=== PATIENT | female | born 1985 | race Caucasian/White ===

== ENCOUNTER 2018-11-15 16:50 | Inpatient (IN) | payer OTHER ==
[2018-11-15] MEDS ORDERED: Lactated Ringers 1,000 ML IV SCH (18:15)
[2018-11-15] MEDS ORDERED: Ondansetron 4 MG/2 ML SDV IVPUSH PRN ×2 (18:15→21:57)
[2018-11-15] MEDS ORDERED: Sodium Chloride 0.9% 10 ML Syringe FLUSH PRN (18:15)
[2018-11-15] MEDS ORDERED: Lidocaine 1% 50 ML MDV INJECT ONE (18:15)
--- NOTE | 2018-11-15 19:30 | PCM.LDHP ---
L&D History of Present Illness - General Date of Service: 11/15/18 Admit Problem/Dx: Patient Status Order with Admit Dx/Problem 11/15/18 18:15 Patient Status [ADT] Routine Admission Diagnosis/Problem Admission Diagnosis/Problem Labor established - History of Present Illness Introduction:: 33 year old here at 39w0d with painful contractions and cervical change. Improves with: Reports: None Worsens with: Reports: None Associated Symptoms: Reports: N - Related Data Allergies/Adverse Reactions: Allergies Allergy/AdvReac Type Severity Reaction Status Date / Time nickel Allergy Rash Verified 11/15/18 17:50 Home Medications: Home Meds PNV95/Ferrous Fumarate/FA [ Tablet] 1 each PO 11/15/18 [History] Past Medical History - Past Health History Medical/Surgical History: Denies Medical/Surgical History Respiratory 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: Asthma - Past Surgical History HEENT Surgical 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: Oral Surgery, Tonsillectomy, Other (See Below) GI Surgical 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: Appendectomy Social & Family History - Family History Family Medical History: Noncontributory Respiratory: Reports: Asthma - Tobacco Use Smoking Status *Q: Never Smoker Second Hand Smoke Exposure: No - Caffeine Use Caffeine Use: Reports: None - Recreational Drug Use Recreational Drug Use: No - Living Situation & Occupation Living situation: Reports: , with Spouse Occupation: Employed ([employer]) H&P Review of Systems - Review of Systems: Review Of Systems: See Below General: Reports: No Symptoms HEENT: Reports: No Symptoms Pulmonary: Reports: No Symptoms Cardiovascular: Reports: No Symptoms Gastrointestinal: Reports: No Symptoms Genitourinary: Reports: No Symptoms Musculoskeletal: Reports: No Symptoms Skin: Reports: No Symptoms Psychiatric: Reports: No Symptoms Neurological: Reports: No Symptoms Hematologic/Lymphatic: Reports: No Symptoms Immunologic: Reports: No Symptoms L&D Exam - Exam Exam: See Below - Vital Signs Vital Signs: Last Vital Signs Temp 37.2 C 11/15/18 17:27 Pulse 81 11/15/18 17:27 Resp 18 11/15/18 17:27 BP 138/80 11/15/18 17:27 Pulse Ox 97 11/15/18 17:27 Weight: 86.409 kg - OB Specific Contraction Intensity: Mild to Moderate Movement: Active Heart Tones: Present Heart Rate (FHR) Variability: Moderate (6-25 bmp) Presentation: Vertex - Fitch Score Fitch Score Cervix Position: Midposition Fitch Score Consistency: Soft Fitch Score Effacement: >80% Fitch Score Dilation: 3-4 cm Fitch Score 's Station: -2 Fitch Score Total: 9 - Exam General: Alert, Oriented HEENT: PERRLA, Conjunctiva Clear, EACs Clear, EOMI, Hearing Intact, Mucosa Moist & [place], Nares Patent, Normal Nasal Septum, Posterior Pharynx Clear, TMs Clear Neck: Supple, Trachea Midline Lungs: Clear to Auscultation, Normal Respiratory Effort Cardiovascular: Regular Rate, Regular Rhythm GI/Abdominal Exam: Normal Bowel Sounds, Soft, Non-Tender, No Organomegaly, No Distention, No Abnormal Bruit, No Mass, Pelvis Stable Genitourinary: Normal external exam, Normal bimanual exam Back Exam: Normal Inspection Extremities: Normal Inspection, Normal Range of Motion, Non-Tender, No Pedal Edema, Normal Capillary Refill Skin: Warm, Dry, Intact Neurological: Cranial Nerves Intact, Reflexes Equal Bilateral Psychiatric: Alert, Normal Affect, Normal Mood Problem List Initiated/Reviewed/Updated: Yes Orders Last 24hrs: Active Orders 24 hr Category Date Time Status Patient Status [ADT] Routine ADT 11/15/18 18:15 Active Activity as Tolerated [RC] PFP Care 11/15/18 18:15 Active Communication Order [RC] ASDIRECTED Care 11/15/18 18:15 Active Heart Tones [RC] ASDIRECTED Care 11/15/18 18:16 Active Non Stress Test [RC] PER UNIT ROUTINE Care 11/15/18 18:15 Active Notify Provider [RC] PFP Care 11/15/18 18:15 Active Notify Provider [RC] PRN Care 11/15/18 18:15 Active Peripheral IV Care [RC] . DIRECTED Care 11/15/18 18:16 Active Vital Signs [RC] PER UNIT ROUTINE Care 11/15/18 18:15 Active Regular Diet [DIET] Diet 11/15/18 Dinner Active RAPID PLASMA REAGIN,RPR [CHEM] Routine Lab 11/15/18 18:40 Received Lactated Ringers [Ringers, Lactated] 1,000 ml Med 11/15/18 18:15 Active IV ASDIRECTED Nalbuphine [Nubain] Med 11/15/18 18:15 Active 10 mg IVPUSH Q2H PRN Ondansetron [Zofran] Med 11/15/18 18:15 Active 4 mg IVPUSH Q4H PRN Sodium Chloride 0.9% [Saline Flush] Med 11/15/18 18:15 Active 10 ml FLUSH ASDIRECTED PRN Electronic Heart Tones Ext w TOCO [WOMSER] Oth 11/15/18 18:15 Ordered Routine Electronic Heart Tones Internal [WOMSER] Per Unit Oth 11/15/18 18:15 Ordered Routine Peripheral IV Insertion Adult [OM.PC] Routine Oth 11/15/18 18:15 Ordered Resuscitation Status Routine Resus Stat 11/15/18 18:15 Ordered Medication Orders Lactated Ringer's (Ringers, Lactated) 1,000 mls @ 100 mls/hr IV ASDIRECTED TALITA Nalbuphine HCl (Nubain) 10 mg IVPUSH Q2H PRN PRN Reason: Pain Ondansetron HCl (Zofran) 4 mg IVPUSH Q4H PRN PRN Reason: Nausea/Vomiting Sodium Chloride (Saline Flush) 10 ml FLUSH ASDIRECTED PRN PRN Reason: Keep Vein Open Assessment/Plan Comment:: Term labor. Doing well. Anticipate unless otherwise indicated.
[2018-11-15] MEDS ORDERED: fentaNYL/Bupivacaine in NS PF 2 MCG-0.125% 250 ML Premix EPIDUR PRN (21:57)
[2018-11-15] MEDS ORDERED: ePHEDrine 50 MG/ML SDV IVPUSH PRN (21:57)
[2018-11-15] MEDS ORDERED: fentaNYL 100 MCG/2 ML SDV EPIDUR PRN (21:57)
--- NOTE | 2018-11-15 21:59 | PCM.PREANE ---
Preanesthetic Assessment - Anesthesia/Transfusion/Family Hx Anesthesia History: Prior Anesthesia Without Reaction Family History of Anesthesia Reaction: No Transfusion History: No Prior Transfusion(s) Intubation History: Unknown - Review of Systems Pulmonary: No Symptoms (History of asthma) - Physical Assessment NPO Status Date: 11/15/18 Vital Signs: Last Vital Signs Temp 37.2 C 11/15/18 17:27 Pulse 81 11/15/18 17:27 Resp 18 11/15/18 17:27 BP 138/80 11/15/18 17:27 Pulse Ox 97 11/15/18 17:27 Height: 1.68 m Weight: 86.409 kg ASA Class: 2 Mental Status: Alert & Oriented x3 - Allergies Allergies/Adverse Reactions: Allergies Allergy/AdvReac Type Severity Reaction Status Date / Time nickel Allergy Rash Verified 11/15/18 17:50 - Anesthesia Plan Pre-Op Medication Ordered: None - Acknowledgements Anesthesia Type Planned: Epidural Pt an Appropriate Candidate for the Planned Anesthesia: Yes Alternatives and Risks of Anesthesia Discussed w Pt/Guardian: Yes Pt/Guardian Understands and Agrees with Anesthesia Plan: Yes PreAnesthesia Questionnaire - Past Health History Medical/Surgical History: Denies Medical/Surgical History Respiratory 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: Asthma - Past Surgical History HEENT Surgical 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: Oral Surgery, Tonsillectomy, Other (See Below) GI Surgical 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: Appendectomy - SUBSTANCE USE Smoking Status *Q: Never Smoker Second Hand Smoke Exposure: No Recreational Drug Use History: No - HOME MEDS Home Medications: Home Meds PNV95/Ferrous Fumarate/FA [ Tablet] 1 each PO 11/15/18 [History] - CURRENT (IN HOUSE) MEDS Current Meds: Current Medications Lactated Ringer's (Ringers, Lactated) 1,000 mls @ 100 mls/hr IV ASDIRECTED TALITA Nalbuphine HCl (Nubain) 10 mg IVPUSH Q2H PRN PRN Reason: Pain Ondansetron HCl (Zofran) 4 mg IVPUSH Q4H PRN PRN Reason: Nausea/Vomiting Sodium Chloride (Saline Flush) 10 ml FLUSH ASDIRECTED PRN PRN Reason: Keep Vein Open Discontinued Medications Lidocaine HCl (Xylocaine 1%) 50 ml INJECT ONETIME ONE Stop: 11/15/18 18:16
[2018-11-15] MEDS ORDERED: Oxytocin/Lactated Ringers 10 UNIT/1,000 ML BAG IV SCH (23:15)
[2018-11-15] MEDS: Nalbuphine 10 MG/1 ML Vial IVPUSH PRN (23:17)
[2018-11-16] MEDS ORDERED: Oxytocin/Lactated Ringers 10 UNIT/1,000 ML BAG IV SCH (01:30)
[2018-11-16] MEDS: Nalbuphine 10 MG/1 ML Vial IVPUSH PRN (01:31)
[2018-11-16] MEDS ORDERED: Oxytocin/Lactated Ringers 10 UNIT/1,000 ML BAG IV ONE (03:10)
[2018-11-16] MEDS ORDERED: Lidocaine 1% 50 ML MDV ONE (03:13)
--- NOTE | 2018-11-16 03:44 | PCM.SN ---
- Free Text/Narrative Note: Stage I - Patient presented in active labor. Progressed to complete with one dose of nubain. Stage II - of viable male, weight 3400, 7/9 APGARS at 0309. Head delivered in controlled manner over intact perineum. Body and shoulders atraumatically. Positive cry. Cord clamped and cut. Baby on maternal abdomen. Stage III - of intact placenta. 3vc. Small 1st degree laceration repaired with 3-0 vicryl.
[2018-11-16] MEDS ORDERED: Ibuprofen 600 MG Tab PO PRN (04:05)
[2018-11-16] MEDS ORDERED: Benzocaine/Menthol 20%-0.5% Spray 56 GM Canister TOP PRN (04:05)
[2018-11-16] MEDS ORDERED: Witch Hazel Medicated Pads 40/Jar TOP PRN (04:05)
--- NOTE | 2018-11-18 07:18 | PCM.DCSUM1 ---
Discharge Summary - Hospital Course Free Text/Narrative:: Racheal is a 33-year-old female admitted for active labor on 11/15/2018. Labor progressed as follows: Stage I - Patient presented in active labor. Progressed to complete with one dose of nubain. Stage II - of viable male, weight 3400, 7/9 APGARS at 0309. Head delivered in controlled manner over intact perineum. Body and shoulders atraumatically. Positive cry. Cord clamped and cut. Baby on maternal abdomen. Stage III - of intact placenta. 3vc. Small 1st degree laceration repaired with 3-0 vicryl. patient is done well. She's been afebrile. Vital signs stable. She is desiring discharge home. Diagnosis: Stroke: No - Discharge Data Discharge Date: 11/18/18 Discharge Disposition: Home, Self-Care 01 Condition: Good - Referral to Home Health Primary Care Physician: Isabel Baker MD - Patient Instructions Diet: Regular Diet as Tolerated Activity: As Tolerated (Carver or tampons until bleeding resolves) Driving: May Drive Today Showering/Bathing: May Shower (May take a bath) Notify Provider of: Fever, Increased Pain, Swelling and Redness, Nausea and/or Vomiting - Discharge Plan Home Medications: Home Meds Albuterol Sulfate [Albuterol Sulfate Hfa] 1 puff INH Q4HR PRN 11/15/18 [History] Albuterol [Proventil Neb Soln] 1 ampule INH QID PRN 11/15/18 [History] Calcium Carb/D3/Magnesium/Zinc [Miguel Mag Zinc + D Tablet] 2 tab PO DAILY [History] PNV95/Ferrous Fumarate/FA [ Tablet] 1 each PO 11/15/18 [History] Referrals: Isabel Baker MD [Primary Care Provider] - (Return to clinic4 weeks 'Dr. Marcos) - Discharge Summary/Plan Comment DC Time >30 min.: No Discharge Summary/Plan Comment: Discharge instructions: 1. Discharge home 2. Diet, activity and follow-up discussed with patient. Recommend nursing diet with increased calories and calcium. 3. Precautions given concern increased pain, bleeding, temperature, signs/ symptoms of DVT/PE. 4. Medications per home medication was printed, discussed with and given to the patient. 5. Return to clinic-Dr. Marcos at [facility] in 6 weeks. Diagnosis: Term -delivered Condition: Good - Patient Data Vitals - Most Recent: Last Vital Signs Temp 36.7 C 11/18/18 03:00 Pulse 92 11/18/18 03:00 Resp 16 11/18/18 03:00 BP 108/55 L 11/18/18 03:00 Pulse Ox 99 11/18/18 02:09 Weight - Most Recent: 86.409 kg I&O - Last 24 hours: Intake & Output 11/17/18 11/18/18 11/18/18 22:59 06:59 14:59 Intake Total 180 Balance 180 Med Orders - Current: Current Medications Benzocaine/Menthol (Dermoplast Pain Relief [place]) 0 gm TOP ASDIRECTED PRN PRN Reason: Perineal Comfort Measure Last Admin: 11/16/18 04:09 Dose: 1 canister Ibuprofen (Motrin) 600 mg PO Q6H PRN PRN Reason: Mild pain or fever Last Admin: 11/16/18 04:09 Dose: 600 mg Witch Rocio (Tucks) 1 pad TOP ASDIRECTED PRN PRN Reason: Pain Last Admin: 11/16/18 04:08 Dose: 1 tub Discontinued Medications Ephedrine Sulfate (Ephedrine Sulfate) 5 mg IVPUSH ASDIRECTED PRN PRN Reason: Hypotension Fentanyl (Sublimaze) 100 mcg EPIDUR Q3H PRN PRN Reason: Pain Fentanyl/Bupivacaine HCl (Fentanyl/Bupivacaine/Ns 2 Mcg-0.125% 250 Ml) 2 mcg EPIDUR CONTINUOUS PRN PRN Reason: Pain Lactated Ringer's (Ringers, Lactated) 1,000 mls @ 100 mls/hr IV ASDIRECTED TALITA Oxytocin/Lactated Ringer's (Pitocin In Lr 10 Units/1,000 Ml) 10 unit in 1,000 mls @ 500 mls/hr IV TITRATE TALITA; Protocol Oxytocin/Lactated Ringer's (Pitocin In Lr 10 Units/1,000 Ml) 10 unit in 1,000 mls @ 500 mls/hr IV ONETIME ONE; Protocol Stop: 11/16/18 05:09 Last Admin: 11/16/18 03:15 Dose: 500 mls/hr Lidocaine HCl (Xylocaine 1%) 50 ml INJECT ONETIME ONE Stop: 11/15/18 18:16 Last Admin: 11/16/18 04:06 Dose: 50 ml Lidocaine HCl (Xylocaine 1%) Confirm Administered Dose 50 ml .ROUTE .STK-MED ONE Stop: 11/16/18 03:14 Last Admin: 11/16/18 07:36 Dose: Not Given Nalbuphine HCl (Nubain) 10 mg IVPUSH Q2H PRN PRN Reason: Pain Last Admin: 11/16/18 01:31 Dose: 10 mg Ondansetron HCl (Zofran) 4 mg IVPUSH Q4H PRN PRN Reason: Nausea/Vomiting Ondansetron HCl (Zofran) 4 mg IVPUSH ONETIME PRN PRN Reason: Nausea/Vomiting Sodium Chloride (Saline Flush) 10 ml FLUSH ASDIRECTED PRN PRN Reason: Keep Vein Open
== END 2018-11-18 10:45 | disposition home or self-care (01) | DRG 807 ==
LOC: JD.OBCHECK 16:50 → JD.OB 16:53 → JD.OBCHECK 22:54 → OBSVTOIN 11-16 03:09 → JD.OB 11-16 03:10
PROVIDERS: ADMIT Obstetrics & Gynecology; ATTEND Obstetrics & Gynecology
PROC: 0HQ9XZZ Repair Perineum Skin, External Approach (ICD-10-PCS; principal; 2018-11-16)
PROC: 10E0XZZ Delivery of Products of Conception, External Approach (ICD-10-PCS; 2018-11-16)
DX: O70.0 First degree perineal laceration during delivery (principal); Z37.0 Single live birth; Z3A.39 39 weeks gestation of pregnancy
CPT/HCPCS: 36415; 59025; 59409; 85025; 86592; A9270-GY; J2001; J2300; J2590

== ENCOUNTER 2018-12-10 18:46 | Emergency (ER) | payer OTHER ==
--- NOTE | 2018-12-10 19:48 | EDM.PDOC ---
ED HPI GENERAL MEDICAL PROBLEM - General Chief Complaint: General Stated Complaint: LUMP ON RIGHT BREAST CHILLS AND LOW FEVER Time Seen by Provider: 12/10/18 19:23 Source of Information: Reports: Patient, Family () History Limitations: Reports: No Limitations - History of Present Illness INITIAL COMMENTS - FREE TEXT/NARRATIVE: Mrs. Bermudez is a very pleasant 33-year-old woman who underwent vaginal deliver on 11/16/2018. She is breast-feeding. She states that she developed a painful and tender right breast lump this past 12/08/2018. She continued to nurse and pump, took hot showers, and alternated heat and ice. Today she noticed a "blood blister" on the breast, which she popped around 11 AM. She states that purulent fluid emanated. It initially gave her relief, however, this evening she had considerably increased pain to the right breast. No recent fever. 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 She also visits her grandmother in the [facility] about once a week. The patient does not have a PCP. Her FOOD SERVICE HELPER is Dr. Isabel Baker. Treatments R&D ENGINEER: Reports: NSAIDS Right Breast Pain Score (Numeric/FACES): 6 - Related Data Allergies Allergy/AdvReac Type Severity Reaction Status Date / Time nickel Allergy Rash Verified 12/10/18 19:21 Home Meds: Home Meds Albuterol Sulfate [Albuterol Sulfate Hfa] 1 puff INH Q4HR PRN 11/15/18 [History] Albuterol [Proventil Neb Soln] 1 ampule INH QID PRN 11/15/18 [History] Calcium Carb/D3/Magnesium/Zinc [Miguel Mag Zinc + D Tablet] 2 tab PO DAILY [History] PNV95/Ferrous Fumarate/FA [ Tablet] 1 each PO 11/15/18 [History] Cephalexin [Keflex] 1 tab PO Q6H #28 capsule 12/10/18 [Rx] Past Medical History Respiratory 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: Asthma (suspected, not tested) - Past Surgical History HEENT Surgical 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: Naso-Sinus Surgery (nasolacrimal duct surgery as an ), Oral Surgery (wisdom teeth extractions), Tonsillectomy GI Surgical 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: Appendectomy Social & Family History - Family History Family Medical History: Noncontributory Respiratory: Reports: Asthma - Tobacco Use Smoking Status *Q: Never Smoker - Caffeine Use Caffeine Use: Reports: None - Alcohol Use Alcohol Use History: Yes Alcohol Use Frequency: Socially - Recreational Drug Use Recreational Drug Use: No - Living Situation & Occupation Living situation: Reports: , with Spouse, with Family (1 child) Occupation: Employed ([employer]) ED ROS GENERAL - Review of Systems Review Of Systems: ROS reveals no pertinent complaints other than HPI. ED EXAM, GENERAL - Physical Exam Exam: See Below Exam Limited By: No Limitations General Appearance: Alert, WD/WN, No Apparent Distress Respiratory/Chest: Other (Erythema involves nearly the entire upper half of the right breast, and some of the lower half. Most of this erythema is indurated, consistent with cellulitis. There is a nonfluctuant area in the center that the patient indicates where the pustule was that she popped, that appears to be ecchymotic.) Course - Vital Signs Last Recorded V/S: Last Vital Signs Temp 37.5 C 12/10/18 19:17 Pulse 107 H 12/10/18 19:17 Resp 16 12/10/18 19:17 BP 121/93 H 12/10/18 19:17 Pulse Ox 99 12/10/18 19:17 - Orders/Labs/Meds Orders: Active Orders 24 hr Category Date Time Status CULTURE BODY FLUID + SMEAR [RM] Stat Lab 12/10/18 22:05 Received Labs: Laboratory Tests 12/10/18 Range/Units 20:11 MRSA (PCR) Negative Meds: Medications Discontinued Medications Generic Name Dose Route Start Last Admin Trade Name Buffy PRN Reason Stop Dose Admin Cephalexin 500 mg 12/10/18 21:38 12/10/18 22:25 Keflex PO 12/10/18 21:39 500 mg ONETIME STA Administration Vancomycin HCl 1 gm/ Sodium 250 mls @ 250 mls/hr 12/10/18 21:08 12/10/18 21: 20 Chloride IV 12/10/18 22:07 250 mls/hr ONETIME STA Administration - Re-Assessments/Exams Free Text/Narrative Re-Assessment/Exam: 12/10/18 19:45 By examination, the patient is not suffering from simple mastitis caused by a clogged milk duct; she has significant cellulitis that involves most of the right breast. In the center, where the patient reports a "blood blister" that she popped, this may represent a pustule. The patient's breast is indurated, but I do not feel the fluctuance of a fluid pocket. The presence of a pustule increases the likelihood that the patient's cellulitis is due to MRSA, and, indeed, the patient tells me that she uses antibacterial soap at home and visits her grandmother in the [facility] about once a week, both of which increase her risk for MRSA colonization. I have therefore ordered an MRSA screen by PCR, and will direct antibiotic treatment based on those results. 12/10/18 21:09 Notified by Meka FERREIRA that the patient is feeling some shivers. The MRSA screen by PCR is not yet back, but I think it would be reasonable to give the patient a dose of IV vancomycin, then base her oral antibiotics on the MRSA screen results. 12/10/18 21:40 The MRSA screen has returned negative. Current guidelines recommend collection of a sterile sample of breast milk; if an organism grows in the breast milk, that is almost certainly the causative agent. The patient believes that she can provide of breastmilk sample. I have ordered 500 mg of oral Keflex, and will discharge the patient home with a 7-day prescription for the same. I would like her to follow-up with her OB/ LEGAL TRANSCRIBER this week. Departure - Departure Time of Disposition: 21:52 Disposition: Home, Self-Care 01 Condition: Good Clinical Impression: Infective mastitis - Discharge Information *PRESCRIPTION DRUG MONITORING PROGRAM REVIEWED*: Not Applicable *COPY OF PRESCRIPTION DRUG MONITORING REPORT IN PATIENT YANE: Not Applicable Prescriptions: Cephalexin [Keflex] 1 tab PO Q6H #28 capsule Instructions: Mastitis, Qrda-to-Oxiw Referrals: Isabel Baker MD [Primary Care Provider] - Forms: ED Department Discharge Additional Instructions: You were seen in the emergency room for a painful, swollen, and red right breast. Workup in the ER included an MRSA screen by PCR, which returned negative. Based on your history and physical examination, you are most likely suffering from infective mastitis. You have been started on the antibiotic Keflex. A prescription for Keflex has been sent to the [facility], located on [address]. Take one tablet of Keflex every 6 hours for 7 days, as prescribed. Finish the entire prescription unless told otherwise by Dr. Baker. You may take clil-snn-npxahhw ibuprofen, 2-3 tablets (400-600 mg) every 8 hours , with food, as needed for discomfort. Apply cool compresses to the right breast as needed for discomfort. Follow-up with your FOOD SERVICE HELPER, Dr. Isabel Baker, within the next few days. If any other problems, please do not hesitate to return to the ER. - My Orders Last 24 Hours: My Active Orders 12/10/18 22:05 CULTURE BODY FLUID + SMEAR [RM] Stat - Assessment/Plan Last 24 Hours: My Active Orders 12/10/18 22:05 CULTURE BODY FLUID + SMEAR [RM] Stat
[2018-12-10] MEDS ORDERED: Cephalexin 500 MG Cap PO STA (21:38)
== END 2018-12-10 22:32 | disposition home or self-care (01) ==
LOC: JD.ED 18:46
DX: O91.22 Nonpurulent mastitis associated with the puerperium (principal); Z91.09 Other allergy status, other than to drugs and biological substances
CPT/HCPCS: 87070; 87641; 96365; 99283; A9270; J3370; J7050; 87205

== ENCOUNTER 2018-12-13 09:59 | Inpatient (IN) | payer OTHER ==
[2018-12-13] MEDS ORDERED: Sodium Chloride 0.9% 10 ML Syringe FLUSH PRN (10:28)
[2018-12-13] MEDS ORDERED: FLU Vacc QS2019-20(6MOS+)/PF 60 MCG/0.5 ML SYRINGE IM ONE (11:45)
[2018-12-13] MEDS: Ibuprofen 400 MG Tab PO SCH ×3 (12:07→22:35)
[2018-12-13] MEDS: Acetaminophen/oxyCODONE 325-5 MG Tab PO PRN ×2 (12:10→16:25)
[2018-12-13] MEDS: Vancomycin 1.5 GM in Sodium Chloride 0.9% 500 ML IV SCH ×2 (12:11→22:38)
--- NOTE | 2018-12-13 12:42 | PCM.HP.2 ---
<Harpal Foss - Last Filed: 12/13/18 13:20> H&P History of Present Illness - General Date of Service: 12/13/18 Admit Problem/Dx: Admission Diagnosis/Problem Admission Diagnosis/Problem Breast infection Source of Information: Patient History Limitations: Reports: No Limitations - History of Present Illness Initial Comments - Free Text/Narative: Patient is a 33 year old female who is approximately 1 month post from [facility] on 11/16/18 and currently . She is a patient of Dr. Baker. On Tuesday12/08/18 the patient initially noticed what she thought may have been a clogged duct while . She noted a painful and tender right breast lump. She attempted massage, hot and cold compresses and continued breast feeding for management. On Tuesday, she noticed that there was a "white head like a pimple," on her breast. She then used her fingers to "squeeze" the lesion, causing release of approximately 2 paper-towel's worth of fluid around 11 am. She initially felt relief and took a nap, however following her nap she awoke in excruciating pain. She then presented to the ER, where she underwent MRSA screening as well as culturing of her breast milk. While in the ER, the patient developed some chills and was given an single dose of IV vancomycin while awaiting the MRSA screen. The MRSA screen then returned negative, and the patient was discharged home with a 7 day prescription of 500 mg oral Cephalexin and instructed to follow up with OB the following week. On 12/12/18, the patient presented to the walk in clinic for further evaluation of the breast. In the walk in clinic, the patient underwent I&D of the lesion, with drainage of copious amount of fluid and packing of the wound. A wound culture was obtained, and the patient instructed to follow up with OB provider the following day and seek immediate medical care if symptoms worsen. The patient was also prescribed sulfamethoxazole-trimethoprim double strength 800-160 mg BID for coverage of MRSA. The patient presented today in clinic for further evaluation of her breast lesion. She reports that she has taken her antibiotics as prescribed and continues to breast feed her son despite pain. She reports that her symptoms are relatively the same as before, including pain and redness, and denies worsening of symptoms. She reports that she is tolerating her antibiotics well, although she does note her son has had some abdominal discomfort, which she has discussed with his mold carrier. On exam the patient had significant erythema of the right breast and a small, pinpoint lesion that expressed copious amount of drainage when manipulated following removal of the packing. Culture report from the hospital was reviewed and the breast milk culture demonstrated MRSA with resistance to Amoxicillin/Clavulanate, Ampicillin, Ampicillin/Sulbactam, Ceftriaxone, Oxacillin, Levofloxacin and erythromycin.. Culture demonstrated susceptibility to Trimethoprim/sulfamethoxazole and vancomycin, among others. Wound culture reports from the walk in clinic were not yet available. The patient's abscess was repacked with 1/4 inch iodoform gauze and the patient was directly admitted to the hospital for IV antibiotics, blood cultures, pain management and further monitoring. Onset of Symptoms: Reports: Sudden Symptom Onset Date: 12/08/18 Duration of Symptoms: Reports: Day(s): Location: Reports: Other (breast) Right Breast Pain Score (Numeric/FACES): 2 - Related Data Allergies/Adverse Reactions: Allergies Allergy/AdvReac Type Severity Reaction Status Date / Time nickel Allergy Rash Verified 12/13/18 11:38 Home Medications: Home Meds Albuterol Sulfate [Albuterol Sulfate Hfa] 2 puff INH Q4HR PRN 11/15/18 [History] Calcium Carb/D3/Magnesium/Zinc [Miguel Mag Zinc + D Tablet] 2 tab PO BEDTIME [History] PNV95/Ferrous Fumarate/FA [ Tablet] 1 each PO BEDTIME 11/15/18 [History] RX: Albuterol [Proventil Neb Soln] 1 ampule INH QID PRN 11/15/18 [History] Cephalexin [Keflex] 1 tab PO Q6H #28 capsule 12/10/18 [Rx] RX: Ibuprofen 400 mg PO Q8H PRN 12/13/18 [History] Sulfamethoxazole/Trimethoprim [Bactrim Ds Tablet] 1 each PO BID 12/13/18 [ History] Past Medical History - Past Health History Medical/Surgical History: Denies Medical/Surgical History Respiratory 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: Asthma - Past Surgical History HEENT Surgical 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: Naso-Sinus Surgery, Oral Surgery, Tonsillectomy GI Surgical 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: Appendectomy Social & Family History - Family History Family Medical History: Noncontributory Respiratory: Reports: Asthma - Tobacco Use Smoking Status *Q: Never Smoker - Tobacco Core Measures Tobacco Use/Smoking Within Last 30 Days: No - Caffeine Use Caffeine Use: Reports: Coffee, Tea - Recreational Drug Use Recreational Drug Use: No - Living Situation & Occupation Living situation: Reports: , with Spouse, with Family (1 child) Occupation: Employed ([employer]) H&P Review of Systems - Review of Systems: Review Of Systems: See Below General: Reports: Chills HEENT: Reports: No Symptoms Pulmonary: Reports: No Symptoms Cardiovascular: Reports: No Symptoms Gastrointestinal: Reports: No Symptoms Genitourinary: Reports: No Symptoms Musculoskeletal: Reports: No Symptoms Skin: Reports: Change in Color, Lesions, Other (Increased pain) Psychiatric: Reports: No Symptoms Neurological: Reports: No Symptoms Hematologic/Lymphatic: Reports: No Symptoms Exam - Exam Exam: See Below - Vital Signs Vital Signs: Last Vital Signs Temp 98.1 F 12/13/18 10:13 Pulse 73 12/13/18 10:13 Resp 16 12/13/18 10:13 BP 116/75 12/13/18 10:13 Pulse Ox 98 12/13/18 10:13 Weight: 75.614 kg - Exam General: Alert, Oriented HEENT: Conjunctiva Clear, EACs Clear, EOMI, Hearing Intact, Mucosa Moist & [place] , Nares Patent, Pupils Equal Neck: Supple, Trachea Midline Lungs: Clear to Auscultation, Normal Respiratory Effort Cardiovascular: Regular Rate, Regular Rhythm GI/Abdominal Exam: Normal Bowel Sounds, Soft, Non-Tender Back Exam: Normal Inspection Extremities: Normal Inspection, Non-Tender, No Pedal Edema Peripheral Pulses: 1+: Posterior Tibial (L), Posterior Tibial (R), Dorsalis Pedis (L), Dorsalis Pedis (R), 2+: Radial (L), Radial (R) Skin: Other (Erythemaous, fluctuant lesion of the right breast, superior to the right areola. Associated surrounding erythema and warmth with tenderess. Left breast appears normal. ) Neurological: Cranial Nerves Intact Neuro Extensive - Mental Status: Alert, Oriented x3, Normal Mood/Affect, Normal Cognition Neuro Extensive - Motor, Sensory, Reflexes: CN II-XII Intact Psychiatric: Alert, Normal Affect, Normal Mood - Patient Data Lab Results Last 24 hrs: Laboratory Results - last 24 hr 12/13/18 12/13/18 Range/Units 11:15 11:18 WBC 8.62 (3.98-10.04) K/mm3 RBC 4.00 (3.98-5.22) M/mm3 Hgb 11.5 (11.2-15.7) gm/dl Hct 35.3 (34.1-44.9) % MCV 88.3 (79.4-94.8) fl MCH 28.8 (25.6-32.2) pg MCHC 32.6 (32.2-35.5) g/dl RDW Std Deviation 47.9 H (36.4-46.3) fL Plt Count 328 D (182-369) K/mm3 MPV 11.1 (9.4-12.3) fl Neut % (Auto) 74.3 H (34.0-71.1) % Lymph % (Auto) 17.4 L (19.3-51.7) % [place] % (Auto) 6.3 (4.7-12.5) % Eos % (Auto) 1.4 (0.7-5.8) Baso % (Auto) 0.3 (0.1-1.2) % Neut # (Auto) 6.40 H (1.56-6.13) K/mm3 Lymph # (Auto) 1.50 (1.18-3.74) K/mm3 [place] # (Auto) 0.54 H (0.24-0.36) K/mm3 Eos # (Auto) 0.12 (0.04-0.36) K/mm3 Baso # (Auto) 0.03 (0.01-0.08) K/mm3 Manual Slide Review Normal smear Sodium 142 (136-145) mEq/L Potassium 3.9 (3.5-5.1) mEq/L Chloride 107 (98-107) mEq/L Carbon Dioxide 25 (21-32) mEq/L Anion Gap 13.9 (5-15) BUN 14 (7-18) mg/dL Creatinine 0.9 (0.55-1.02) mg/dL Est Cr Clr Drug Dosing 84.79 mL/min Estimated GFR (MDRD) > 60 (>60) mL/min BUN/Creatinine Ratio 15.6 (14-18) Glucose 98 (74-106) mg/dL Calcium 9.4 (8.5-10.1) mg/dL Total Bilirubin 0.1 L (0.2-1.0) mg/dL AST 25 (15-37) U/L ALT 37 (14-59) U/L Alkaline Phosphatase 98 (46-116) U/L Total Protein 7.2 (6.4-8.2) g/dl Albumin 2.9 L (3.4-5.0) g/dl Globulin 4.3 gm/dL Albumin/Globulin Ratio 0.7 L (1-2) Result Diagrams: 12/13/18 11:18 12/13/18 11:15 Problem List Initiated/Reviewed/Updated: Yes Orders Last 24hrs: Active Orders 24 hr Category Date Time Status Patient Status [ADT] Routine ADT 12/13/18 10:29 Active Influenza Vaccine Charge [RC] .DISCHARGE Care 12/13/18 11:26 Active Notify Provider Vital Signs [RC] ASDIRECTED Care 12/13/18 10:29 Active Up ad Ninoska [RC] PER UNIT ROUTINE Care 12/13/18 10:29 Active Vital Signs [RC] 03,09,15,21 Care 12/13/18 10:29 Active Wound Care [RC] Q12H Care 12/13/18 10:35 Active Regular Diet [DIET] Diet 12/13/18 Lunch Active Acetaminophen/oxyCODONE [Percocet 325-5 MG] Med 12/13/18 10:28 Active 2 tab PO Q4H PRN Docusate Sodium [Colace] Med 12/13/18 10:28 Active 100 mg PO BID PRN Ibuprofen [Motrin] Med 12/13/18 10:30 Active 600 mg PO Q6H Ondansetron [Zofran] Med 12/13/18 10:28 Active 4 mg IVPUSH Q4H PRN Sodium Chloride 0.9% [Saline Flush] Med 12/13/18 10:28 Active 10 ml FLUSH ASDIRECTED PRN Vancomycin 1.5 gm Med 12/13/18 10:30 Active Sodium Chloride 0.9% [Normal Saline] 500 ml IV Q12H Peripheral IV Insertion Adult [OM.PC] Routine Oth 12/13/18 10:28 Ordered Resuscitation Status Routine Resus Stat 12/13/18 10:28 Ordered Medication Orders Docusate Sodium (Colace) 100 mg PO BID PRN PRN Reason: Constipation Vancomycin HCl 1.5 gm/ Sodium (Chloride) 500 mls @ 250 mls/hr IV Q12H TALITA Last Admin: 12/13/18 12:11 Dose: 250 mls/hr Ibuprofen (Motrin) 600 mg PO Q6H TALITA Last Admin: 12/13/18 12:07 Dose: 600 mg Ondansetron HCl (Zofran) 4 mg IVPUSH Q4H PRN PRN Reason: Nausea/Vomiting Oxycodone/Acetaminophen (Percocet 325-5 Mg) 2 tab PO Q4H PRN PRN Reason: Pain (moderate 4-6) Last Admin: 12/13/18 12:10 Dose: 2 tab Sodium Chloride (Saline Flush) 10 ml FLUSH ASDIRECTED PRN PRN Reason: Keep Vein Open Assessment/Plan Comment:: Assessment: * Breast Abscess: right breast, superior to areola. * Extent of erythema demarcated with pen for monitoring * Obtain blood cultures to rule out bacteremia * IV Vancomycin - pharmacy to dose * Ocycodone/acetaminophen pain management * Wound care q12 hours * Consult general surgery * Continue to breastfeed as tolerated Plan: * Diet as tolerated * Activity as tolerated * Full code status * Home medications reconciled * See above <Gertrudis Delgado - Last Filed: 12/13/18 20:46> H&P History of Present Illness - General Admit Problem/Dx: Admission Diagnosis/Problem Admission Diagnosis/Problem Breast infection Source of Information: Patient History Limitations: Reports: No Limitations Past Medical History Respiratory 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: Asthma : 1 Para: 1 - Past Surgical History HEENT Surgical 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: Naso-Sinus Surgery, Oral Surgery, Tonsillectomy GI Surgical 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: Appendectomy Social & Family History - Tobacco Use Smoking Status *Q: Never Smoker - Caffeine Use Caffeine Use: Reports: Coffee, Tea - Recreational Drug Use Recreational Drug Use: No H&P Review of Systems - Review of Systems: Review Of Systems: See Below General: Reports: Chills HEENT: Reports: No Symptoms Pulmonary: Reports: No Symptoms Cardiovascular: Reports: No Symptoms Gastrointestinal: Reports: No Symptoms Genitourinary: Reports: No Symptoms Musculoskeletal: Reports: No Symptoms Skin: Reports: Change in Color, Other Psychiatric: Reports: No Symptoms Neurological: Reports: No Symptoms Hematologic/Lymphatic: Reports: No Symptoms Exam - Exam Exam: See Below - Vital Signs Vital Signs: Last Vital Signs Temp 36.6 C 12/13/18 14:34 Pulse 60 12/13/18 14:34 Resp 16 12/13/18 14:34 BP 122/92 H 12/13/18 14:34 Pulse Ox 97 12/13/18 14:34 - Exam General: Alert, Oriented Neck: Supple, Trachea Midline Lungs: Clear to Auscultation, Normal Respiratory Effort Cardiovascular: Regular Rate, Regular Rhythm GI/Abdominal Exam: Normal Bowel Sounds, Soft, Non-Tender Back Exam: Normal Inspection Extremities: Normal Inspection, Non-Tender, No Pedal Edema Skin: Other Neuro Extensive - Mental Status: Alert, Oriented x3, Normal Mood/Affect, Normal Cognition Psychiatric: Alert, Normal Affect, Normal Mood - Patient Data Lab Results Last 24 hrs: Laboratory Results - last 24 hr 12/13/18 12/13/18 Range/Units 11:15 11:18 WBC 8.62 (3.98-10.04) K/mm3 RBC 4.00 (3.98-5.22) M/mm3 Hgb 11.5 (11.2-15.7) gm/dl Hct 35.3 (34.1-44.9) % MCV 88.3 (79.4-94.8) fl MCH 28.8 (25.6-32.2) pg MCHC 32.6 (32.2-35.5) g/dl RDW Std Deviation 47.9 H (36.4-46.3) fL Plt Count 328 D (182-369) K/mm3 MPV 11.1 (9.4-12.3) fl Neut % (Auto) 74.3 H (34.0-71.1) % Lymph % (Auto) 17.4 L (19.3-51.7) % [place] % (Auto) 6.3 (4.7-12.5) % Eos % (Auto) 1.4 (0.7-5.8) Baso % (Auto) 0.3 (0.1-1.2) % Neut # (Auto) 6.40 H (1.56-6.13) K/mm3 Lymph # (Auto) 1.50 (1.18-3.74) K/mm3 [place] # (Auto) 0.54 H (0.24-0.36) K/mm3 Eos # (Auto) 0.12 (0.04-0.36) K/mm3 Baso # (Auto) 0.03 (0.01-0.08) K/mm3 Manual Slide Review Normal smear Sodium 142 (136-145) mEq/L Potassium 3.9 (3.5-5.1) mEq/L Chloride 107 (98-107) mEq/L Carbon Dioxide 25 (21-32) mEq/L Anion Gap 13.9 (5-15) BUN 14 (7-18) mg/dL Creatinine 0.9 (0.55-1.02) mg/dL Est Cr Clr Drug Dosing 84.79 mL/min Estimated GFR (MDRD) > 60 (>60) mL/min BUN/Creatinine Ratio 15.6 (14-18) Glucose 98 (74-106) mg/dL Calcium 9.4 (8.5-10.1) mg/dL Total Bilirubin 0.1 L (0.2-1.0) mg/dL AST 25 (15-37) U/L ALT 37 (14-59) U/L Alkaline Phosphatase 98 (46-116) U/L Total Protein 7.2 (6.4-8.2) g/dl Albumin 2.9 L (3.4-5.0) g/dl Globulin 4.3 gm/dL Albumin/Globulin Ratio 0.7 L (1-2) Result Diagrams: 12/13/18 11:18 12/13/18 11:15 Orders Last 24hrs: Active Orders 24 hr Category Date Time Status Patient Status [ADT] Routine ADT 12/13/18 10:29 Active Influenza Vaccine Charge [RC] 1200 Care 12/13/18 11:26 Active Notify Provider Consults [RC] ASDIRECTED Care 12/13/18 12:29 Active Notify Provider Vital Signs [RC] ASDIRECTED Care 12/13/18 10:29 Active Up ad Ninoska [RC] PER UNIT ROUTINE Care 12/13/18 10:29 Active Vital Signs [RC] 03,09,15,21 Care 12/13/18 10:29 Active Wound Care [RC] Q12H Care 12/13/18 10:35 Active Consult to Physician [CONS] Routine Cons 12/13/18 12:28 Active Regular Diet [DIET] Diet 12/13/18 Lunch Active Acetaminophen/oxyCODONE [Percocet 325-5 MG] Med 12/13/18 10:28 Active 2 tab PO Q4H PRN Docusate Sodium [Colace] Med 12/13/18 10:28 Active 100 mg PO BID PRN Ibuprofen [Motrin] Med 12/13/18 10:30 Active 600 mg PO Q6H Ondansetron [Zofran] Med 12/13/18 10:28 Active 4 mg IVPUSH Q4H PRN Sodium Chloride 0.9% [Saline Flush] Med 12/13/18 10:28 Active 10 ml FLUSH ASDIRECTED PRN Vancomycin 1.5 gm Med 12/13/18 10:30 Active Sodium Chloride 0.9% [Normal Saline] 500 ml IV Q12H Peripheral IV Insertion Adult [OM.PC] Routine Oth 12/13/18 10:28 Ordered Resuscitation Status Routine Resus Stat 12/13/18 10:28 Ordered Medication Orders Docusate Sodium (Colace) 100 mg PO BID PRN PRN Reason: Constipation Vancomycin HCl 1.5 gm/ Sodium (Chloride) 500 mls @ 250 mls/hr IV Q12H TALITA Last Admin: 12/13/18 12:11 Dose: 250 mls/hr Ibuprofen (Motrin) 600 mg PO Q6H TALITA Last Admin: 12/13/18 12:07 Dose: 600 mg Ondansetron HCl (Zofran) 4 mg IVPUSH Q4H PRN PRN Reason: Nausea/Vomiting Oxycodone/Acetaminophen (Percocet 325-5 Mg) 2 tab PO Q4H PRN PRN Reason: Pain (moderate 4-6) Last Admin: 12/13/18 12:10 Dose: 2 tab Sodium Chloride (Saline Flush) 10 ml FLUSH ASDIRECTED PRN PRN Reason: Keep Vein Open Assessment/Plan Comment:: I agree with History and Physical as documented by medical student and have confirmed exam findings. Agree with plan as well, however, will hold on blood cultures for now. Will order if has fever while admitted. CBC, CMP done on admission. Repeat CBC in AM. Gertrudis Delgado MD
--- NOTE | 2018-12-13 14:14 | PCM.CONS ---
H&P History of Present Illness - General Date of Service: 12/13/18 Admit Problem/Dx: Admission Diagnosis/Problem Admission Diagnosis/Problem Breast infection Source of Information: Patient History Limitations: Reports: No Limitations - History of Present Illness Onset of Symptoms: Reports: Gradual Symptom Onset Date: 12/08/18 Duration of Symptoms: Reports: Day(s):, Improving Location: Reports: Chest Quality: Reports: Burning, Sharp Severity: Moderate Improves with: Reports: Rest Worsens with: Reports: None Context: Reports: Other Associated Symptoms: Reports: No Other Symptoms Right Breast Pain Score (Numeric/FACES): 2 - Related Data Allergies/Adverse Reactions: Allergies Allergy/AdvReac Type Severity Reaction Status Date / Time nickel Allergy Rash Verified 12/13/18 11:38 Home Medications: Home Meds Albuterol Sulfate [Albuterol Sulfate Hfa] 2 puff INH Q4HR PRN 11/15/18 [History] Albuterol [Proventil Neb Soln] 1 ampule INH QID PRN 11/15/18 [History] Calcium Carb/D3/Magnesium/Zinc [Miguel Mag Zinc + D Tablet] 2 tab PO BEDTIME [History] PNV95/Ferrous Fumarate/FA [ Tablet] 1 each PO BEDTIME 11/15/18 [History] Cephalexin [Keflex] 1 tab PO Q6H #28 capsule 12/10/18 [Rx] Ibuprofen 400 mg PO Q8H PRN 12/13/18 [History] Sulfamethoxazole/Trimethoprim [Bactrim Ds Tablet] 1 each PO BID 12/13/18 [ History] Past Medical History - Past Health History Medical/Surgical History: Denies Medical/Surgical History Respiratory 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: Asthma - Past Surgical History HEENT Surgical 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: Naso-Sinus Surgery, Oral Surgery, Tonsillectomy GI Surgical 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: Appendectomy Social & Family History - Family History Family Medical History: Noncontributory Respiratory: Reports: Asthma - Tobacco Use Smoking Status *Q: Never Smoker - Caffeine Use Caffeine Use: Reports: Coffee, Tea - Recreational Drug Use Recreational Drug Use: No - Living Situation & Occupation Living situation: Reports: , with Spouse, with Family (1 child) Occupation: Employed ([employer]) H&P Review of Systems - Review of Systems: Review Of Systems: See Below General: Reports: Fever, Malaise HEENT: Reports: Glasses Pulmonary: Reports: No Symptoms Cardiovascular: Reports: No Symptoms Gastrointestinal: Reports: No Symptoms Genitourinary: Reports: No Symptoms Musculoskeletal: Reports: No Symptoms Skin: Reports: Erythema, Wound Psychiatric: Reports: No Symptoms Neurological: Reports: No Symptoms Hematologic/Lymphatic: Reports: No Symptoms Immunologic: Reports: No Symptoms Exam - Exam Exam: See Below - Vital Signs Vital Signs: Last Vital Signs Temp 36.7 C 12/13/18 10:13 Pulse 73 12/13/18 10:13 Resp 16 12/13/18 10:13 BP 116/75 12/13/18 10:13 Pulse Ox 98 12/13/18 10:13 Weight: 75.614 kg - Exam Quality Assessment: Skin Breakdown General: Alert, Oriented HEENT: Conjunctiva Clear Neck: Supple, Trachea Midline Lungs: Normal Respiratory Effort Cardiovascular: Regular Rate GI/Abdominal Exam: Soft (Female) Exam: Deferred Rectal (Female) Exam: Deferred Back Exam: Normal Inspection Extremities: Normal Inspection Peripheral Pulses: 2+: Radial (L), Radial (R) Skin: Warm, Dry Neurological: Strength Equal Bilateral, Normal Speech Neuro Extensive - Mental Status: Alert, Oriented x3 Neuro Extensive - Motor, Sensory, Reflexes: Normal Gait Psychiatric: Alert, Normal Affect, Normal Mood Physical Exam Comments:: Right breast erythematous and indurated, minimally tender, with 1 cm transverse incision at superior aspect of the breast with thin, purulent non-malodorous scant drainage. No obvious fluctuance noted. Some superficial epidermal sloughing around incision site. - Patient Data Lab Results Last 24 hrs: Laboratory Results - last 24 hr 12/13/18 12/13/18 Range/Units 11:15 11:18 WBC 8.62 (3.98-10.04) K/mm3 RBC 4.00 (3.98-5.22) M/mm3 Hgb 11.5 (11.2-15.7) gm/dl Hct 35.3 (34.1-44.9) % MCV 88.3 (79.4-94.8) fl MCH 28.8 (25.6-32.2) pg MCHC 32.6 (32.2-35.5) g/dl RDW Std Deviation 47.9 H (36.4-46.3) fL Plt Count 328 D (182-369) K/mm3 MPV 11.1 (9.4-12.3) fl Neut % (Auto) 74.3 H (34.0-71.1) % Lymph % (Auto) 17.4 L (19.3-51.7) % [place] % (Auto) 6.3 (4.7-12.5) % Eos % (Auto) 1.4 (0.7-5.8) Baso % (Auto) 0.3 (0.1-1.2) % Neut # (Auto) 6.40 H (1.56-6.13) K/mm3 Lymph # (Auto) 1.50 (1.18-3.74) K/mm3 [place] # (Auto) 0.54 H (0.24-0.36) K/mm3 Eos # (Auto) 0.12 (0.04-0.36) K/mm3 Baso # (Auto) 0.03 (0.01-0.08) K/mm3 Manual Slide Review Normal smear Sodium 142 (136-145) mEq/L Potassium 3.9 (3.5-5.1) mEq/L Chloride 107 (98-107) mEq/L Carbon Dioxide 25 (21-32) mEq/L Anion Gap 13.9 (5-15) BUN 14 (7-18) mg/dL Creatinine 0.9 (0.55-1.02) mg/dL Est Cr Clr Drug Dosing 84.79 mL/min Estimated GFR (MDRD) > 60 (>60) mL/min BUN/Creatinine Ratio 15.6 (14-18) Glucose 98 (74-106) mg/dL Calcium 9.4 (8.5-10.1) mg/dL Total Bilirubin 0.1 L (0.2-1.0) mg/dL AST 25 (15-37) U/L ALT 37 (14-59) U/L Alkaline Phosphatase 98 (46-116) U/L Total Protein 7.2 (6.4-8.2) g/dl Albumin 2.9 L (3.4-5.0) g/dl Globulin 4.3 gm/dL Albumin/Globulin Ratio 0.7 L (1-2) Result Diagrams: 12/14/18 05:42 12/13/18 11:15 Consult PN Assessment/Plan POD#: other Procedures: Procedures BL SMEAR W/DIFF WBC COUNT (01/08/18) BLOOD TYPING SEROLOGIC ABO (01/08/18) BLOOD TYPING SEROLOGIC RH(D) (01/08/18) CHORIONIC GONADOTROPIN TEST (01/08/18) COMPLETE CBC AUTOMATED (01/08/18) CULTURE OTHR SPECIMN AEROBIC (12/10/18) EMERGENCY DEPT VISIT (12/10/18) EMERGENCY DEPT VISIT (01/08/18) MR-STAPH DNA AMP PROBE (12/10/18) ROUTINE VENIPUNCTURE (01/08/18) THER/PROPH/DIAG IV INF INIT (12/10/18) (1) Abscess of breast, right SNOMED Code(s): 52283188 Code(s): N61.1 - ABSCESS OF THE BREAST AND NIPPLE Current Visit: Yes Assessment:: Will perform bedside ultrasound to rule out undrained fluid collection; otherwise continue IV antibiotics and monitor for resolution of cellulitis. Problem List Initiated/Reviewed/Updated: Yes Plan: Continued IV antibiotics and monitoring for resolution of cellulitis, with ultrasound of right breast to rule out any undrained fluid collection. Requesting Provider: jackie Date Consult Requested: 12/13/18 Reason for Consult: right breast abscess Patient History Reviewed: Yes Admission H&P Reviewed: Yes Consult Result/Summary:: no drainable fluid collection identified on exam or with bedside ultrasound. Continue IV antibiotics. Notified Requestor: Yes Time Spent (in minutes): 60
[2018-12-13] MEDS: Ondansetron 4 MG/2 ML SDV IVPUSH PRN (19:34)
[2018-12-14] MEDS: Acetaminophen/oxyCODONE 325-5 MG Tab PO PRN ×4 (04:33→22:03)
[2018-12-14] MEDS: Ibuprofen 400 MG Tab PO SCH ×4 (04:34→21:47)
--- NOTE | 2018-12-14 07:16 | PCM.PN ---
- General Info Date of Service: 12/14/18 Functional Status: Reports: Pain Controlled, Tolerating Diet, Ambulating - Review of Systems General: Reports: No Symptoms Pulmonary: Reports: No Symptoms Cardiovascular: Reports: No Symptoms Gastrointestinal: Reports: No Symptoms Genitourinary: Reports: No Symptoms Systems Review Comment:: Breast pain improved with use of percocet - Patient Data Vitals - Most Recent: Last Vital Signs Temp 36.5 C 12/14/18 01:27 Pulse 68 12/14/18 01:27 Resp 16 12/14/18 01:27 BP 101/67 12/14/18 01:27 Pulse Ox 100 12/14/18 01:27 Weight - Most Recent: 78.154 kg I&O - Last 24 Hours: Intake & Output 12/13/18 12/14/18 12/14/18 22:59 06:59 14:59 Intake Total 2100 525 Output Total 550 Balance 1550 525 Lab Results Last 24 Hours: Laboratory Results - last 24 hr 12/13/18 12/13/18 12/14/18 Range/Units 11:15 11:18 05:42 WBC 8.62 6.58 (3.98-10.04) K/mm3 RBC 4.00 3.94 L (3.98-5.22) M/mm3 Hgb 11.5 11.3 (11.2-15.7) gm/dl Hct 35.3 35.1 (34.1-44.9) % MCV 88.3 89.1 (79.4-94.8) fl MCH 28.8 28.7 (25.6-32.2) pg MCHC 32.6 32.2 (32.2-35.5) g/dl RDW Std Deviation 47.9 H 47.9 H (36.4-46.3) fL Plt Count 328 D 282 (182-369) K/mm3 MPV 11.1 11.1 (9.4-12.3) fl Neut % (Auto) 74.3 H (34.0-71.1) % Lymph % (Auto) 17.4 L (19.3-51.7) % Hudspeth % (Auto) 6.3 (4.7-12.5) % Eos % (Auto) 1.4 (0.7-5.8) Baso % (Auto) 0.3 (0.1-1.2) % Neut # (Auto) 6.40 H (1.56-6.13) K/mm3 Lymph # (Auto) 1.50 (1.18-3.74) K/mm3 Hudspeth # (Auto) 0.54 H (0.24-0.36) K/mm3 Eos # (Auto) 0.12 (0.04-0.36) K/mm3 Baso # (Auto) 0.03 (0.01-0.08) K/mm3 Manual Slide Review Normal smear Sodium 142 (136-145) mEq/L Potassium 3.9 (3.5-5.1) mEq/L Chloride 107 (98-107) mEq/L Carbon Dioxide 25 (21-32) mEq/L Anion Gap 13.9 (5-15) BUN 14 (7-18) mg/dL Creatinine 0.9 (0.55-1.02) mg/dL Est Cr Clr Drug Dosing 84.79 mL/min Estimated GFR (MDRD) > 60 (>60) mL/min BUN/Creatinine Ratio 15.6 (14-18) Glucose 98 (74-106) mg/dL Calcium 9.4 (8.5-10.1) mg/dL Total Bilirubin 0.1 L (0.2-1.0) mg/dL AST 25 (15-37) U/L ALT 37 (14-59) U/L Alkaline Phosphatase 98 (46-116) U/L Total Protein 7.2 (6.4-8.2) g/dl Albumin 2.9 L (3.4-5.0) g/dl Globulin 4.3 gm/dL Albumin/Globulin Ratio 0.7 L (1-2) Med Orders - Current: Current Medications Docusate Sodium (Colace) 100 mg PO BID PRN PRN Reason: Constipation Vancomycin HCl 1.5 gm/ Sodium (Chloride) 500 mls @ 250 mls/hr IV Q12H [facility] Last Admin: 12/13/18 22:38 Dose: 250 mls/hr Ibuprofen (Motrin) 600 mg PO Q6H [facility] Last Admin: 12/14/18 04:34 Dose: 600 mg Ondansetron HCl (Zofran) 4 mg IVPUSH Q4H PRN PRN Reason: Nausea/Vomiting Last Admin: 12/13/18 19:34 Dose: 4 mg Oxycodone/Acetaminophen (Percocet 325-5 Mg) 2 tab PO Q4H PRN PRN Reason: Pain (moderate 4-6) Last Admin: 12/14/18 04:33 Dose: 2 tab Sodium Chloride (Saline Flush) 10 ml FLUSH ASDIRECTED PRN PRN Reason: Keep Vein Open Discontinued Medications Influenza Virus Vaccine (Pharmacy To Dose - Influenza Vaccine) 1 each IM ONETIME ONE Stop: 12/13/18 11:27 Influenza Virus Vaccine (Fluzone Quad [id number] Syringe) 60 mcg IM .ONCE ONE Stop: 12/13/18 11:46 Last Admin: 12/13/18 20:06 Dose: Not Given - Exam General: Alert, Oriented, Cooperative Physical Findings Comments:: Right breast with erythema that has receded slightly within previous marking. Packing removed and with a moderate amount of purulent material noted. Able to express some additional material with gentle massage. Area re-packed and dressed with gauze. Some peeling noted of skin - Problem List & Annotations (1) Abscess of breast, right SNOMED Code(s): 81627466 Code(s): N61.1 - ABSCESS OF THE BREAST AND NIPPLE Status: Acute Current Visit: Yes - Problem List Review Problem List Initiated/Reviewed/Updated: Yes - My Orders Last 24 Hours: My Active Orders 12/13/18 10:28 Acetaminophen/oxyCODONE [Percocet 325-5 MG] 2 tab PO Q4H PRN Docusate Sodium [Colace] 100 mg PO BID PRN Ondansetron [Zofran] 4 mg IVPUSH Q4H PRN Sodium Chloride 0.9% [Saline Flush] 10 ml FLUSH ASDIRECTED PRN Peripheral IV Insertion Adult [OM.PC] Routine Resuscitation Status Routine 12/13/18 10:29 Patient Status [ADT] Routine Notify Provider Vital Signs [RC] ASDIRECTED Up ad Nnioska [RC] BID Vital Signs [RC] 03,09,15,21 12/13/18 10:30 Ibuprofen [Motrin] 600 mg PO Q6H Vancomycin 1.5 gm Sodium Chloride 0.9% [Normal Saline] 500 ml IV Q12H 12/13/18 10:35 Wound Care [RC] BID 12/13/18 12:28 Consult to Physician [CONS] Routine 12/13/18 12:29 Notify Provider Consults [RC] ASDIRECTED 12/13/18 Lunch Regular Diet [DIET] - Assessment Assessment:: HD#2 admitted for management of breast abscess - improving - Plan Plan:: * Continue IV vancomycin q 12 hrs * Continue BID dressing changes * Appreciate General Surgery consult, no need for further surgical intervention at this time * Discharge pending clinical course
[2018-12-14] MEDS: Ondansetron 4 MG/2 ML SDV IVPUSH PRN ×4 (08:29→22:04)
[2018-12-14] MEDS: Vancomycin 1.5 GM in Sodium Chloride 0.9% 500 ML IV SCH ×2 (10:39→21:47)
[2018-12-15] MEDS: Ibuprofen 400 MG Tab PO SCH (05:08)
[2018-12-15] MEDS: Acetaminophen/oxyCODONE 325-5 MG Tab PO PRN ×3 (08:07→17:44)
[2018-12-15] MEDS: Ondansetron 4 MG/2 ML SDV IVPUSH PRN ×3 (08:08→17:44)
--- NOTE | 2018-12-15 08:19 | PCM.PN ---
- General Info Date of Service: 12/15/18 Functional Status: Reports: Pain Controlled, Tolerating Diet, Ambulating - Review of Systems General: Reports: No Symptoms Pulmonary: Reports: No Symptoms Cardiovascular: Reports: No Symptoms Gastrointestinal: Reports: No Symptoms Genitourinary: Reports: No Symptoms Musculoskeletal: Reports: No Symptoms Systems Review Comment:: Pain slightly more manageable in breast - Patient Data Vitals - Most Recent: Last Vital Signs Temp 36.9 C 12/15/18 05:11 Pulse 56 L 12/15/18 05:11 Resp 18 12/15/18 05:11 BP 119/67 12/15/18 05:11 Pulse Ox 95 12/15/18 05:11 Weight - Most Recent: 79.288 kg I&O - Last 24 Hours: Intake & Output 12/14/18 12/15/18 12/15/18 22:59 06:59 14:59 Intake Total 2400 1100 Output Total 1900 1200 Balance 500 -100 Med Orders - Current: Current Medications Docusate Sodium (Colace) 100 mg PO BID PRN PRN Reason: Constipation Vancomycin HCl 1.5 gm/ Sodium (Chloride) 500 mls @ 250 mls/hr IV Q12H [facility] Last Admin: 12/14/18 21:47 Dose: 250 mls/hr Ibuprofen (Motrin) 600 mg PO Q6H [facility] Morphine Sulfate (Morphine) 4 mg IVPUSH ASDIRECTED PRN PRN Reason: WITH DRESSING CHANGES Last Admin: 12/14/18 16:49 Dose: 4 mg Ondansetron HCl (Zofran) 4 mg IVPUSH Q4H PRN PRN Reason: Nausea/Vomiting Last Admin: 12/15/18 08:08 Dose: 4 mg Oxycodone/Acetaminophen (Percocet 325-5 Mg) 2 tab PO Q4H PRN PRN Reason: Pain (moderate 4-6) Last Admin: 12/15/18 08:07 Dose: 2 tab Sodium Chloride (Saline Flush) 10 ml FLUSH ASDIRECTED PRN PRN Reason: Keep Vein Open Vancomycin HCl (Pharmacy To Dose - Vancomycin) 0 dose .XX DAILY PRN PRN Reason: RX TO DOSE Discontinued Medications Ibuprofen (Motrin) 600 mg PO Q6H [facility] Last Admin: 12/15/18 05:08 Dose: 600 mg Influenza Virus Vaccine (Pharmacy To Dose - Influenza Vaccine) 1 each IM ONETIME ONE Stop: 12/13/18 11:27 Influenza Virus Vaccine (Fluzone Quad [id number] Syringe) 60 mcg IM .ONCE ONE Stop: 12/13/18 11:46 Last Admin: 12/13/18 20:06 Dose: Not Given Morphine Sulfate (Morphine) 4 mg IVPUSH ASDIRECTED PRN PRN Reason: WITH DRESSING CHANGES - Exam General: Alert, Oriented, Cooperative Physical Findings Comments:: Packing removed from right breast. Still a small amount of purulent material noted. Question whether there is a thinner fluid like breast milk noted. Will continue to assess closely - Problem List & Annotations (1) Abscess of breast, right SNOMED Code(s): 06672199 Code(s): N61.1 - ABSCESS OF THE BREAST AND NIPPLE Status: Acute Current Visit: Yes - Problem List Review Problem List Initiated/Reviewed/Updated: Yes - My Orders Last 24 Hours: My Active Orders 12/14/18 08:40 Morphine Sulfate [Morphine] 4 mg IVPUSH ASDIRECTED PRN 12/14/18 12:51 Pharmacy to Dose - Vancomycin 0 dose .XX DAILY PRN 12/15/18 09:30 VANCOMYCIN TROUGH [CHEM] Timed 12/15/18 10:30 Ibuprofen [Motrin] 600 mg PO Q6H - Assessment Assessment:: HD#3 admitted for management of breast abscess - improving slowly - Plan Plan:: * Continue IV vancomycin q 12 hrs. Pharmacy to do a vanc trough today * Continue BID dressing changes * Discharge pending clinical course, hopefully tomorrow
[2018-12-15] MEDS: Ibuprofen 600 MG Tab PO SCH ×3 (09:52→21:50)
[2018-12-15] MEDS: Vancomycin 1.5 GM in Sodium Chloride 0.9% 500 ML IV SCH ×2 (11:22→21:49)
[2018-12-15] MEDS: Docusate Sodium 100 MG Cap PO PRN (13:36)
[2018-12-16] MEDS: Acetaminophen/oxyCODONE 325-5 MG Tab PO PRN ×2 (03:07→13:58)
[2018-12-16] MEDS: Ondansetron 4 MG/2 ML SDV IVPUSH PRN ×2 (03:08→09:17)
[2018-12-16] MEDS: Ibuprofen 600 MG Tab PO SCH ×2 (04:33→11:07)
[2018-12-16] MEDS: Docusate Sodium 100 MG Cap PO PRN (07:24)
--- NOTE | 2018-12-16 09:47 | PCM.PN ---
- General Info Date of Service: 12/16/18 Functional Status: Reports: Pain Controlled, Tolerating Diet, Ambulating, Urinating - Review of Systems General: Reports: No Symptoms Pulmonary: Reports: No Symptoms Cardiovascular: Reports: No Symptoms Gastrointestinal: Reports: Constipation Genitourinary: Reports: No Symptoms Systems Review Comment:: Breast pain continues to improve - Patient Data Vitals - Most Recent: Last Vital Signs Temp 36.4 C 12/16/18 03:13 Pulse 57 L 12/16/18 03:13 Resp 12 12/16/18 03:13 BP 115/73 12/16/18 03:13 Pulse Ox 96 12/16/18 03:13 Weight - Most Recent: 78.88 kg I&O - Last 24 Hours: Intake & Output 12/15/18 12/16/18 12/16/18 22:59 06:59 14:59 Intake Total 2810 1900 Output Total 2400 3200 Balance 410 -1300 Lab Results Last 24 Hours: Laboratory Results - last 24 hr 12/15/18 Range/Units 09:38 Vancomycin Trough 18.3 (10.0-20.0) Med Orders - Current: Current Medications Docusate Sodium (Colace) 100 mg PO BID PRN PRN Reason: Constipation Last Admin: 12/16/18 07:24 Dose: 100 mg Vancomycin HCl 1.5 gm/ Sodium (Chloride) 500 mls @ 250 mls/hr IV Q12H [facility] Last Admin: 12/15/18 21:49 Dose: 250 mls/hr Ibuprofen (Motrin) 600 mg PO Q6H [facility] Last Admin: 12/16/18 04:33 Dose: 600 mg Morphine Sulfate (Morphine) 4 mg IVPUSH ASDIRECTED PRN PRN Reason: WITH DRESSING CHANGES Last Admin: 12/16/18 09:18 Dose: 4 mg Ondansetron HCl (Zofran) 4 mg IVPUSH Q4H PRN PRN Reason: Nausea/Vomiting Last Admin: 12/16/18 09:17 Dose: 4 mg Oxycodone/Acetaminophen (Percocet 325-5 Mg) 2 tab PO Q4H PRN PRN Reason: Pain (moderate 4-6) Last Admin: 12/16/18 03:07 Dose: 2 tab Sodium Chloride (Saline Flush) 10 ml FLUSH ASDIRECTED PRN PRN Reason: Keep Vein Open Vancomycin HCl (Pharmacy To Dose - Vancomycin) 0 dose .XX DAILY PRN PRN Reason: RX TO DOSE Discontinued Medications Ibuprofen (Motrin) 600 mg PO Q6H [facility] Last Admin: 12/15/18 05:08 Dose: 600 mg Influenza Virus Vaccine (Pharmacy To Dose - Influenza Vaccine) 1 each IM ONETIME ONE Stop: 12/13/18 11:27 Influenza Virus Vaccine (Fluzone Quad Syringe) 60 mcg IM .ONCE ONE Stop: 12/13/18 11:46 Last Admin: 12/13/18 20:06 Dose: Not Given Morphine Sulfate (Morphine) 4 mg IVPUSH ASDIRECTED PRN PRN Reason: WITH DRESSING CHANGES - Exam General: Alert, Oriented, Cooperative Physical Findings Comments:: Right breast with minimal drainage this AM. Erythema continues to improve. Area appropriately tender to touch - Problem List & Annotations (1) Abscess of breast, right SNOMED Code(s): 28647175 Code(s): N61.1 - ABSCESS OF THE BREAST AND NIPPLE Status: Acute Current Visit: Yes - Problem List Review Problem List Initiated/Reviewed/Updated: Yes - My Orders Last 24 Hours: My Active Orders 12/15/18 10:30 Ibuprofen [Motrin] 600 mg PO Q6H 12/16/18 09:46 Ready for Discharge [RC] PER UNIT ROUTINE - Assessment Assessment:: HD#4 admitted for management of breast abscess - improving - Plan Plan:: * Has received 4 day fo IV vancomycin with significant improvement. Will discharge today and have patient complete previously Rx'd Bactrim course * Continue packing at least once daily * Empty breasts regularly * Rx for Percocet for pain with dressing changes * Follow up with Dr. Baker as scheduled on 12/19/2018
--- NOTE | 2018-12-16 09:48 | PCM.DCSUM1 ---
Discharge Summary - Discharge Data Discharge Date: 12/16/18 Discharge Disposition: Home, Self-Care 01 Condition: Good - Referral to Home Health Primary Care Physician: Gertrudis Delgado MD - Discharge Diagnosis/Problem(s) (1) Abscess of breast, right SNOMED Code(s): 94674277 ICD Code: N61.1 - ABSCESS OF THE BREAST AND NIPPLE Status: Acute Current Visit: Yes - Patient Summary/Data Complications: None Consults: Consultations 12/13/18 12:28 Consult to Physician [CONS] Routine Recommended Follow-up Testing/Procedures: Followup next week as scheduled with Dr. Baker [facility] Course: 33 y/o woman about 1 month who was seen in ED and [facility] for concerns of breast abscess. I&D done in [facility] day prior to evaluation by myself. When seen in clinic for follow up significant erythema/signs of infection noted. Patient admitted for IV vancomycin and BID packing changes. She completed 4 days of IV vancomycin with improvement in drainage and erythema. Patient then discharged to home to complete out patient Bactrim course - Patient Instructions Diet: Regular Diet as Tolerated Activity: As Tolerated Driving: Do Not Drive (While taking narcotics ) Showering/Bathing: May Shower Wound/Incision Care: Change Dressing Daily Notify Provider of: Fever, Increased Pain, Swelling and Redness, Drainage, Nausea and/or Vomiting - Discharge Plan *PRESCRIPTION DRUG MONITORING PROGRAM REVIEWED*: No *COPY OF PRESCRIPTION DRUG MONITORING REPORT IN PATIENT YANE: No Prescriptions/Med Rec: Acetaminophen/oxyCODONE [Percocet 325-5 MG] 2 tab PO Q6H PRN #20 tablet PRN Reason: Pain (Moderate 4-6) Sulfamethoxazole/Trimethoprim [Bactrim Ds Tablet] 1 each PO BID #1 tablet Home Medications: Home Meds Albuterol Sulfate [Albuterol Sulfate Hfa] 2 puff INH Q4HR PRN 11/15/18 [History] Albuterol [Proventil Neb Soln] 1 ampule INH QID PRN 11/15/18 [History] Calcium Carb/D3/Magnesium/Zinc [Miguel Mag Zinc + D Tablet] 2 tab PO BEDTIME [History] PNV95/Ferrous Fumarate/FA [ Tablet] 1 each PO BEDTIME 11/15/18 [History] Acetaminophen/oxyCODONE [Percocet 325-5 MG] 2 tab PO Q6H PRN #20 tablet [Rx] Docusate Sodium [Colace] 100 mg PO BID PRN cap 12/16/18 [Rx] Ibuprofen [Motrin] 600 mg PO Q6H tablet 12/16/18 [Rx] Sulfamethoxazole/Trimethoprim [Bactrim Ds Tablet] 1 each PO BID #1 tablet [Rx] Patient Handouts: Mastitis, [id number], Constipation, Adult, [id number], Incision and Drainage, Care After, MRSA Infection, Adult Referrals: Isabel Baker MD [Physician] - (12/19/2018 as scheduled ) - Discharge Summary/Plan Comment DC Time >30 min.: No - Patient Data Vitals - Most Recent: Last Vital Signs Temp 36.4 C 12/16/18 03:13 Pulse 57 L 12/16/18 03:13 Resp 12 12/16/18 03:13 BP 115/73 12/16/18 03:13 Pulse Ox 96 12/16/18 03:13 Weight - Most Recent: 78.88 kg I&O - Last 24 hours: Intake & Output 12/15/18 12/16/18 12/16/18 22:59 06:59 14:59 Intake Total 2810 1900 Output Total 2400 3200 Balance 410 -1300 Lab Results - Last 24 hrs: Laboratory Results - last 24 hr 12/15/18 Range/Units 09:38 Vancomycin Trough 18.3 (10.0-20.0) Med Orders - Current: Current Medications Docusate Sodium (Colace) 100 mg PO BID PRN PRN Reason: Constipation Last Admin: 12/16/18 07:24 Dose: 100 mg Vancomycin HCl 1.5 gm/ Sodium (Chloride) 500 mls @ 250 mls/hr IV Q12H [facility] Last Admin: 12/15/18 21:49 Dose: 250 mls/hr Ibuprofen (Motrin) 600 mg PO Q6H [facility] Last Admin: 12/16/18 04:33 Dose: 600 mg Morphine Sulfate (Morphine) 4 mg IVPUSH ASDIRECTED PRN PRN Reason: WITH DRESSING CHANGES Last Admin: 12/16/18 09:18 Dose: 4 mg Ondansetron HCl (Zofran) 4 mg IVPUSH Q4H PRN PRN Reason: Nausea/Vomiting Last Admin: 12/16/18 09:17 Dose: 4 mg Oxycodone/Acetaminophen (Percocet 325-5 Mg) 2 tab PO Q4H PRN PRN Reason: Pain (moderate 4-6) Last Admin: 12/16/18 03:07 Dose: 2 tab Sodium Chloride (Saline Flush) 10 ml FLUSH ASDIRECTED PRN PRN Reason: Keep Vein Open Vancomycin HCl (Pharmacy To Dose - Vancomycin) 0 dose .XX DAILY PRN PRN Reason: RX TO DOSE Discontinued Medications Ibuprofen (Motrin) 600 mg PO Q6H [facility] Last Admin: 12/15/18 05:08 Dose: 600 mg Influenza Virus Vaccine (Pharmacy To Dose - Influenza Vaccine) 1 each IM ONETIME ONE Stop: 12/13/18 11:27 Influenza Virus Vaccine (Fluzone Quad [id number] Syringe) 60 mcg IM .ONCE ONE Stop: 12/13/18 11:46 Last Admin: 12/13/18 20:06 Dose: Not Given Morphine Sulfate (Morphine) 4 mg IVPUSH ASDIRECTED PRN PRN Reason: WITH DRESSING CHANGES
[2018-12-16] MEDS: Vancomycin 1.5 GM in Sodium Chloride 0.9% 500 ML IV SCH (11:07)
== END 2018-12-16 15:15 | disposition home or self-care (01) | DRG 601 ==
LOC: JD.MS 09:59
PROVIDERS: ADMIT Obstetrics & Gynecology; ATTEND Obstetrics & Gynecology
DX: N61.1 Abscess of the breast and nipple (principal); J45.909 Unspecified asthma, uncomplicated; Z91.048 Other nonmedicinal substance allergy status; Z79.899 Other long term (current) drug therapy; Z90.49 Acquired absence of other specified parts of digestive tract; Z90.89 Acquired absence of other organs
CPT/HCPCS: 36415; 80053; 80202; 85025; 85027; A9270-GY; J2270; J2405; J3370; J7040

== ENCOUNTER 2020-11-09 19:54 | Emergency (ER) | payer OTHER ==
[2020-11-09] MEDS ORDERED: Lactated Ringers 1,000 ML IV ONE ×2 (20:37→22:07)
[2020-11-09] MEDS ORDERED: Sodium Chloride 0.9% 10 ML Syringe FLUSH PRN (20:37)
[2020-11-09] MEDS ORDERED: Promethazine 25 MG in Sodium Chloride 0.9% 50 ML IV ONE (20:37)
--- NOTE | 2020-11-09 20:46 | EDM.PDOC ---
ED HPI GENERAL MEDICAL PROBLEM - General Chief Complaint: [employer]ATOR Problem Stated Complaint: VOMITING-14WEEK PREG Time Seen by Provider: 11/09/20 20:25 Source of Information: Reports: Patient, RN Notes Reviewed History Limitations: Reports: No Limitations - History of Present Illness INITIAL COMMENTS - FREE TEXT/NARRATIVE: Patient is a 35-year-old female who presents to the ER for the evaluation of her nausea and vomiting in . Patient's [employer] RO[employer] is Dr. Baker. She is a G3, . States that this has been going well, she has been receiving IV fluids, nearly 2 times a week, and takes oral Zofran but states it does not help much. She states that the IV formulation seems to help better. Her next scheduled IV fluid infusion is for tomorrow, her last one was on Tuesday. Patient states she is not been able to keep anything down for food or fluids at all today. She try to eat some dry toast earlier, but this came straight back up. She has been tried on vitamin B6 and doxylamine, and this worked for about a week but then again she stated the nausea and vomiting returned. She has not had any fevers or chills, or any sort of diarrhea cough or shortness of breath. The patient states that other than the nausea and vomiting, the is going well. - Related Data Allergies Allergy/AdvReac Type Severity Reaction Status Date / Time nickel Allergy Rash Verified 12/13/18 11:38 Home Meds: Home Meds Albuterol Sulfate [Albuterol Sulfate Hfa] 2 puff INH Q4HR PRN 11/15/18 [History] Albuterol [Proventil Neb Soln] 1 ampule INH QID PRN 11/15/18 [History] Calcium Carb/D3/Magnesium/Zinc [Miguel Mag Zinc-D Tablet] 2 tab PO BEDTIME 11/15/18 [History] Pnv No.95/Ferrous Fum/Folic AC [ Tablet] 1 each PO BEDTIME 11/15/18 [History] Acetaminophen/oxyCODONE [Percocet 325-5 MG] 2 tab PO Q6H PRN #20 tablet 12/16/18 [Rx] Docusate Sodium [Colace] 100 mg PO BID PRN cap 12/16/18 [Rx] Ibuprofen [Motrin] 600 mg PO Q6H tablet 12/16/18 [Rx] Sulfamethoxazole/Trimethoprim [Bactrim Ds Tablet] 1 each PO BID #1 tablet 12/16/18 [Rx] Past Medical History - Past Health History Medical/Surgical History: Denies Medical/Surgical History Respiratory 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: Asthma [employer] 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: - Infectious Disease History Infectious Disease 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: MRSA Other Infectious Disease History: Right side breast milk MRSA (12/16) - Past Surgical History HEENT Surgical 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: Tonsillectomy GI Surgical 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: Appendectomy Social & Family History - Family History Family Medical History: No Pertinent Family History Respiratory: Reports: Asthma - Tobacco Use Tobacco Use Status *Q: Never Tobacco User - Caffeine Use Caffeine Use: Reports: Coffee - Recreational Drug Use Recreational Drug Use: No - Living Situation & Occupation Living situation: Reports: , with Spouse, with Family (1 child) Occupation: Employed ([employer]) ED ROS GENERAL - Review of Systems Review Of Systems: Comprehensive ROS is negative, except as noted in HPI. ED EXAM - Physical Exam Exam: See Below Exam Limited By: No Limitations General Appearance: Alert, WD/WN, No Apparent Distress, Active Emesis Respiratory/Chest: No Respiratory Distress, Lungs Clear, Normal Breath Sounds, No Accessory Muscle Use, Chest Non-Tender Cardiovascular: Normal Peripheral Pulses, Regular Rate, Rhythm, No Edema GI/Abdominal Exam: Normal Bowel Sounds, Soft, Non-Tender, No Distention, No Mass Movement: Not Appreciated Extremities: Normal Inspection, Normal Capillary Refill Neurological: Alert, Oriented, Normal Cognition, No Motor/Sensory Deficits Psychiatric: Normal Affect, Normal Mood Skin Exam: Warm, Dry, Intact, Normal Color, No Rash Course - Vital Signs Last Recorded V/S: Last Vital Signs Temp 98.5 F 11/09/20 20:20 Pulse 87 11/09/20 20:20 Resp 16 11/09/20 20:20 BP 121/77 11/09/20 20:20 Pulse Ox 97 11/09/20 20:20 - Orders/Labs/Meds Orders: Active Orders 24 hr Category Date Time Status Peripheral IV Care [RC] . DIRECTED Care 11/09/20 20:37 Ordered Lactated Ringers [Ringers, Lactated] 1,000 ml Med 11/09/20 22:07 Ordered IV ONETIME Sodium Chloride 0.9% [Saline Flush] Med 11/09/20 20:37 Ordered 10 ml FLUSH ASDIRECTED PRN Peripheral IV Insertion Adult [OM.PC] Routine Oth 11/09/20 20:37 Ordered Medication Orders Lactated Ringer's (Ringers, Lactated) 1,000 mls @ 999 mls/hr IV ONETIME ONE Stop: 11/09/20 23:07 Last Admin: 11/09/20 22:17 Dose: 999 mls/hr Documented by: Sodium Chloride (Sodium Chloride 0.9% 10 Ml Syringe) 10 ml FLUSH ASDIRECTED PRN PRN Reason: Keep Vein Open Last Admin: 11/09/20 21:16 Dose: 10 ml Documented by: Meds: Medications Generic Name Dose Route Start Last Admin Trade Name Freq PRN Reason Stop Dose Admin Lactated Ringer's 1,000 mls @ 999 mls/hr 11/09/20 22:07 11/09/20 22:17 Ringers, Lactated IV 11/09/20 23:07 999 mls/hr ONETIME ONE Administration Sodium Chloride 10 ml 11/09/20 20:37 11/09/20 21:16 Sodium Chloride 0.9% 10 Ml Syringe FLUSH 10 ml ASDIRECTED PRN Administration Keep Vein Open Discontinued Medications Generic Name Dose Route Start Last Admin Trade Name Freq PRN Reason Stop Dose Admin Lactated Ringer's 1,000 mls @ 999 mls/hr 11/09/20 20:37 11/09/20 21:00 Ringers, Lactated IV 11/09/20 21:37 999 mls/hr ONETIME ONE Administration Promethazine HCl 25 mg/ Sodium 51 mls @ 100 mls/hr 11/09/20 20:37 11/09/20 21:00 Chloride IV 11/09/20 21:07 100 mls/hr ONETIME ONE Administration Ondansetron HCl 4 mg 11/09/20 22:07 11/09/20 22:17 Ondansetron 4 Mg/2 Ml Sdv IVPUSH 11/09/20 22:08 4 mg ONETIME ONE Administration - Re-Assessments/Exams Free Text/Narrative Re-Assessment/Exam: 11/09/20 20:48 Patient presents to the ER for the evaluation of her nausea and vomiting in , we will go ahead and get IV started, give her some fluids and IV Phenergan to see if this helps relieve some of the nausea/vomiting. 11/09/20 22:06 Patient was reassessed at bedside, states she is feeling a little bit better. Her stomach is still queasy however she was able to keep some crackers down. We will go ahead and give her some IV Zofran for ongoing management, patient states she typically gets 2 bags of IV fluids when she has this much vomiting. I will order on a second bag of fluids to be given after the first 1 has been completed. Departure - Departure Time of Disposition: 22:22 Disposition: Home, Self-Care 01 Condition: Good Clinical Impression: Hyperemesis gravidarum - Discharge Information *PRESCRIPTION DRUG MONITORING PROGRAM REVIEWED*: No *COPY OF PRESCRIPTION DRUG MONITORING REPORT IN PATIENT YANE: No Instructions: Hyperemesis Gravidarum Referrals: Isabel Baker MD [Primary Care Provider] - Forms: ED Department Discharge Additional Instructions: You were evaluated in the ER today for your nausea and vomiting in . You were given some IV fluids, and IV nausea medications, this seemed to help relieve most of your symptoms. Please contact your [employer] OPERATOR provider, tomorrow to see if they would like to move your IV infusion of fluids, from tomorrow to a later date. Please continue to take all other medications as previously prescribed. There are products, that are non-medication devices that might be able to help you with your nausea; one would be the relief band, you can visit their website at [email or web address]://www.reliefband.[email or web address]/ you may want to check this website out, to see if this might be an option for your nausea. I do believe that these items are HSA/FSA eligible. Do not hesitate to return to the ER at any time however symptoms should change or worsen. Sepsis Event Note (ED) - Evaluation Sepsis Screening Result: No Definite Risk - Focused Exam Vital Signs: Vital Signs Temp Pulse Resp BP Pulse Ox 11/09/20 20:20 98.5 F 87 16 121/77 97 - My Orders Last 24 Hours: My Active Orders 11/09/20 20:37 Peripheral IV Care [RC] . DIRECTED Sodium Chloride 0.9% [Saline Flush] 10 ml FLUSH ASDIRECTED PRN Peripheral IV Insertion Adult [OM.PC] Routine 11/09/20 22:07 Lactated Ringers [Ringers, Lactated] 1,000 ml IV ONETIME - Assessment/Plan Last 24 Hours: My Active Orders 11/09/20 20:37 Peripheral IV Care [RC] . DIRECTED Sodium Chloride 0.9% [Saline Flush] 10 ml FLUSH ASDIRECTED PRN Peripheral IV Insertion Adult [OM.PC] Routine 11/09/20 22:07 Lactated Ringers [Ringers, Lactated] 1,000 ml IV ONETIME
[2020-11-09] MEDS ORDERED: Ondansetron 4 MG/2 ML SDV IVPUSH ONE (22:07)
== END 2020-11-09 23:59 | disposition home or self-care (01) ==
LOC: JD.ED 19:54
DX: O21.0 Mild hyperemesis gravidarum (principal); Z91.09 Other allergy status, other than to drugs and biological substances; Z3A.14 14 weeks gestation of pregnancy
CPT/HCPCS: 96365; 96375; 99283; J2405; J2550; J7120

== ENCOUNTER 2020-11-16 15:10 | Emergency (ER) | payer OTHER ==
[2020-11-16] MEDS ORDERED: Ondansetron 4 MG/2 ML SDV IVPUSH ONE (16:05)
[2020-11-16] MEDS ORDERED: Lactated Ringers 1,000 ML IV ONE (16:06)
--- NOTE | 2020-11-16 16:51 | EDM.PDOC ---
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 Patient states that she is 15 weeks and 3 days . Last menstrual period was July 31 and her due date is May 16, 2021. She is a 3 para 1. She has been is receiving IV infusions with Zofran twice per week due to morning sickness throughout this . She states her last IV infusion was 2 days ago. She states this morning she began vomiting and did attempt to swallow Zofran however she states she has been unable to keep it down. I did educate her at that time notifying her that she should be taking the Zofran and allowing it to dissolve under her tongue. She states she has never been told this in the past and has not been taking it correctly. She states she has vomited numerous times today. - Related Data Allergies Allergy/AdvReac Type Severity Reaction Status Date / Time nickel Allergy Rash Verified 12/13/18 11:38 Home Meds: Home Meds Albuterol Sulfate [Albuterol Sulfate Hfa] 2 puff INH Q4HR PRN 11/15/18 [History] Albuterol [Proventil Neb Soln] 1 ampule INH QID PRN 11/15/18 [History] Pnv No.95/Ferrous Fum/Folic AC [ Tablet] 1 each PO BEDTIME 11/15/18 [History] Metoclopramide [Reglan] 5 mg PO Q8H PRN #10 tab 11/16/20 [Rx] ondansetron HCL [Zofran] 4 mg PO Q6H PRN 11/16/20 [History] Past Medical History - Past Health History Medical/Surgical History: Denies Medical/Surgical History Respiratory 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: Asthma 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) ED ROS GENERAL - Review of Systems Review Of Systems: Comprehensive ROS is negative, except as noted in HPI. ED EXAM - Physical Exam Exam: See Below Exam Limited By: No Limitations General Appearance: Alert, WD/WN, Mild Distress Ears: Normal External Exam, Hearing Grossly Normal Nose: Normal Inspection Throat/Mouth: Normal Inspection, Normal Lips, Normal Voice, No Airway Compromise Head: Atraumatic Neck: Normal Inspection, Supple Respiratory/Chest: No Respiratory Distress, Lungs Clear, Normal Breath Sounds, No Accessory Muscle Use, Chest Non-Tender Cardiovascular: Normal Peripheral Pulses, Regular Rate, Rhythm, No Edema, No Murmur GI/Abdominal Exam: Normal Bowel Sounds, Soft, Non-Tender, No Distention Rectal Exam: Deferred Back Exam: Normal Inspection Extremities: Normal Inspection Neurological: Alert, Oriented, Normal Cognition Psychiatric: Normal Affect, Normal Mood Skin Exam: Warm, Dry, Intact, Normal Color, No Rash Lymphatic: No Adenopathy Course - Vital Signs Text/Narrative:: As stated above, patient presents with hyperemesis. She has been receiving IV fluid infusions with IV Zofran twice weekly. She states her last infusion was 2 days ago. Physical exam is essentially unremarkable and patient is he modynamically stable. Will obtain lab studies to include a CBC, CMP, and magnesium level. Patient will receive a liter of lactated Ringer's and 4 mg of Zofran IV. Last Recorded V/S: Last Vital Signs Temp 97.9 F 11/16/20 18:08 Pulse 66 11/16/20 18:08 Resp 16 11/16/20 18:08 BP 119/78 11/16/20 18:08 Pulse Ox 100 11/16/20 18:08 - Orders/Labs/Meds Labs: Laboratory Tests 11/16/20 11/16/20 Range/Units 16:25 16:25 WBC 9.20 (3.98-10.04) K/mm3 RBC 4.24 (3.98-5.22) M/mm3 Hgb 12.7 (11.2-15.7) gm/dl Hct 36.8 (34.1-44.9) % MCV 86.8 (79.4-94.8) fl MCH 30.0 (25.6-32.2) pg MCHC 34.5 (32.2-35.5) g/dl RDW Std Deviation 43.6 (36.4-46.3) fL Plt Count 301 (182-369) K/mm3 MPV 10.6 (9.4-12.3) fl Neut % (Auto) 72.4 H (34.0-71.1) % Lymph % (Auto) 19.0 L (19.3-51.7) % Martin % (Auto) 7.6 (4.7-12.5) % Eos % (Auto) 0.5 L (0.7-5.8) Baso % (Auto) 0.1 (0.1-1.2) % Neut # (Auto) 6.65 H (1.56-6.13) K/mm3 Lymph # (Auto) 1.75 (1.18-3.74) K/mm3 Martin # (Auto) 0.70 H (0.24-0.36) K/mm3 Eos # (Auto) 0.05 (0.04-0.36) K/mm3 Baso # (Auto) 0.01 (0.01-0.08) K/mm3 Sodium 137 (136-145) mEq/L Potassium 3.9 (3.5-5.1) mEq/L Chloride 102 (98-107) mEq/L Carbon Dioxide 25 (21-32) mEq/L Anion Gap 13.9 (5-15) BUN 5 L (7-18) mg/dL Creatinine 0.6 (0.55-1.02) mg/dL Est Cr Clr Drug Dosing 124.85 mL/min Estimated GFR (MDRD) > 60 (>60) mL/min BUN/Creatinine Ratio 8.3 L (14-18) Glucose 81 (70-99) mg/dL Calcium 8.8 (8.5-10.1) mg/dL Magnesium 1.6 L (1.8-2.4) mg/dL Total Bilirubin 0.3 (0.2-1.0) mg/dL AST 15 (15-37) U/L ALT 24 (14-59) U/L Alkaline Phosphatase 72 (46-116) U/L Total Protein 7.4 (6.4-8.2) g/dl Albumin 3.4 (3.4-5.0) g/dl Globulin 4.0 gm/dL Albumin/Globulin Ratio 0.9 L (1-2) Meds: Medications Discontinued Medications Generic Name Dose Route Start Last Admin Trade Name Freq PRN Reason Stop Dose Admin Lactated Ringer's 1,000 mls @ 999 mls/hr 11/16/20 16:06 11/16/20 16:32 Ringers, Lactated IV 11/16/20 17:06 999 mls/hr .BOLUS ONE Administration Metoclopramide HCl 5 mg 11/16/20 17:56 11/16/20 18:04 Metoclopramide 10 Mg/2 Ml Sdv IVPUSH 11/16/20 17:57 5 mg ONETIME ONE Administration Ondansetron HCl 4 mg 11/16/20 16:05 11/16/20 16:30 Ondansetron 4 Mg/2 Ml Sdv IVPUSH 11/16/20 16:06 4 mg ONETIME ONE Administration - Re-Assessments/Exams Free Text/Narrative Re-Assessment/Exam: 11/16/20 17:57 Nursing staff notifies me that patient is still feeling nauseated despite receiving IV Zofran. I phoned the patient's EVENING OR NIGHT NURSE SUPERVISOR, Dr. Baker, and she recommends I give the patient Reglan IV. She also states that I can give the patient a prescription for oral Reglan at the time of discharge. 11/16/20 18:38 Patient states her nausea has completely resolved. Will be discharged home with recommendations that she follow-up with Dr. Baker at her next scheduled appointment. Departure - Departure Time of Disposition: 18:38 Disposition: Home, Self-Care 01 Condition: Good Clinical Impression: Hyperemesis gravidarum - Discharge Information Prescriptions: Metoclopramide [Reglan] 5 mg PO Q8H PRN #10 tab PRN Reason: Nausea/Vomiting Instructions: Hyperemesis Gravidarum Referrals: Isabel Baker MD [Primary Care Provider] - Forms: ED Department Discharge Additional Instructions: You were seen in the emergency department with hyperemesis gravidarum. You were given a liter of IV fluids as well as IV Zofran however this did not seem to hold your nausea and vomiting. You were then given Reglan per Dr. Baker recommendations. Lab studies were also completed which were essentially unremarkable. I have sent prescription to your pharmacy for medication called Reglan which is used to treat nausea and vomiting. You may take 1 tab every 8 hours as needed when the Zofran is not working to control your nausea and vomiting. I did give you 1 tab to take home from the emergency department this evening as there are no pharmacies open tonight. Your last dose of Reglan was given to you at 6 PM this evening. Follow-up with Dr. Baker at your next scheduled OB appointment. She also states that if you need IV infusion sooner you can call and schedule that as you do have standing orders in place. Sepsis Event Note (ED) - Focused Exam Vital Signs: Vital Signs Temp Pulse Resp BP Pulse Ox 11/16/20 18:08 97.9 F 66 16 119/78 100 11/16/20 15:53 97.9 F 63 122/73
[2020-11-16] MEDS ORDERED: Metoclopramide 10 MG/2 ML SDV IVPUSH ONE (17:56)
[2020-11-16] MEDS ORDERED: Metoclopramide 5 MG Tab PO ONE (18:43)
== END 2020-11-16 18:59 | disposition home or self-care (01) ==
LOC: JD.ED 15:10
DX: O21.0 Mild hyperemesis gravidarum (principal); Z3A.15 15 weeks gestation of pregnancy; Z91.048 Other nonmedicinal substance allergy status
CPT/HCPCS: 36415; 80053; 83735; 85025; 96374; 96375; 99284; A9270; J2405; J2765; J7120; 99283

== ENCOUNTER 2020-12-27 19:20 | Emergency (ER) | payer OTHER ==
[2020-12-27] MEDS ORDERED: Sodium Chloride 0.9% 500 ML IV ONE ×2 (20:09→21:38)
[2020-12-27] MEDS ORDERED: Ondansetron 4 MG/2 ML SDV IVPUSH ONE (20:09)
--- NOTE | 2020-12-27 20:35 | EDM.PDOC ---
ED HPI GENERAL MEDICAL PROBLEM - General Chief Complaint: Gastrointestinal Problem Stated Complaint: COVID+/VOMITING/21WKS PREG Time Seen by Provider: 12/27/20 19:58 Source of Information: Reports: Patient, Family History Limitations: Reports: No Limitations - History of Present Illness INITIAL COMMENTS - FREE TEXT/NARRATIVE: 35-year-old female presents the emergency department this evening with complaints of hyperemesis during . Patient states she has been in our emergency department 3 times during her and she does have a standing order at the outpatient infusion center to receive IV fluids. Patient is 21 weeks . She is also Covid positive and did just recently receive monoclonal antibodies. She states she has not really had any Covid type of symptoms and she feels fine in that regards. She states that last evening she started to have nausea and vomiting and attempted to just drink Pedialyte throughout the day today however has not really been able to keep much of anything down. She does have oral Zofran at home however she states this is not work as well and she typically ends up vomiting just shortly after taking it. She denies any fever, chills, or diarrhea. She denies cough or shortness of breath. Treatments RECOVERY ROOM RN: Reports: Acetaminophen - Related Data Allergies Allergy/AdvReac Type Severity Reaction Status Date / Time nickel Allergy Rash Verified 12/27/20 19:57 Home Meds: Home Meds Albuterol Sulfate [Albuterol Sulfate Hfa] 2 puff INH Q4HR PRN 11/15/18 [History] Albuterol [Proventil Neb Soln] 1 ampule INH QID PRN 11/15/18 [History] Pnv No.95/Ferrous Fum/Folic AC [ Tablet] 1 each PO BEDTIME 11/15/18 [History] ondansetron HCL [Zofran] 4 mg PO Q6H PRN 11/16/20 [History] Past Medical History - Past Health History Medical/Surgical History: Denies Medical/Surgical History Cardiovascular 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: None Respiratory 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: Asthma Gastrointestinal 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: None Genitourinary 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: None 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 GENERATOR 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: , 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 Other GAS GENERATOR OPERATOR History: 3, Para 1 Musculoskeletal 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: None Neurological 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: None Psychiatric 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: None Endocrine/Metabolic 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: None Hematologic 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: None Immunologic 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: None Oncologic (Cancer) 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: None Dermatologic 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: None Other Dermatologic History: Moles excised - Infectious Disease History Infectious Disease 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: MRSA Other Infectious Disease History: Right side breast milk MRSA (12/16) pt says it has been cleared - Past Surgical History Head Surgeries/Procedures: Reports: None HEENT Surgical 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: Tonsillectomy Cardiovascular Surgical 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: None Respiratory Surgical 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: None GI Surgical 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: Appendectomy Other GI Surgeries/Procedures: 2014 Social & Family History - Family History Family Medical History: No Pertinent Family History Respiratory: Reports: Asthma - Caffeine Use Caffeine Use: Reports: None - Alcohol Use Days Per Week of Alcohol Use: 0 - Living Situation & Occupation Living situation: Reports: , with Spouse, with Family (1 child) Occupation: Employed ([employer]) ED ROS GENERAL - Review of Systems Review Of Systems: Comprehensive ROS is negative, except as noted in HPI. ED EXAM - Physical Exam Exam: See Below Exam Limited By: No Limitations General Appearance: Alert, WD/WN, Mild Distress Ears: Normal External Exam, Hearing Grossly Normal Nose: Normal Inspection Throat/Mouth: Normal Inspection, Normal Lips, Normal Voice, No Airway Compromise Head: Atraumatic, Normocephalic Neck: Normal Inspection, Supple Respiratory/Chest: No Respiratory Distress, Lungs Clear, Normal Breath Sounds, No Accessory Muscle Use, Chest Non-Tender Cardiovascular: Normal Peripheral Pulses, Regular Rate, Rhythm, No Edema, No Murmur GI/Abdominal Exam: Normal Bowel Sounds, Non-Tender Rectal Exam: Deferred Movement: Active Back Exam: Normal Inspection Extremities: Normal Inspection Neurological: Alert, Oriented, Normal Cognition Psychiatric: Normal Affect, Normal Mood Skin Exam: Warm, Dry, Intact, Normal Color, No Rash Lymphatic: No Adenopathy Course - Vital Signs Text/Narrative:: As stated above, patient presents with hyperemesis gravidarum. Patient, at the time of my exam, is holding an emesis bag however is not actively vomiting. Physical exam is essentially unremarkable. She is hemodynamically stable and afebrile. We will have nursing staff place an IV and will give her 500 mL of normal saline over 1 hour and Zofran 4 mg IV. Due to the patient having Covid I am slightly leery of giving her a full liter of fluids as this is contraindicated when treating Covid patients. We will attempt to get the patient taking p.o. fluids once the Zofran has kicked in. Last Recorded V/S: Last Vital Signs Temp 97.3 F 12/27/20 19:48 Pulse 72 12/27/20 20:04 Resp 18 12/27/20 20:04 BP 106/77 12/27/20 20:04 Pulse Ox 97 12/27/20 20:04 - Orders/Labs/Meds Meds: Medications Discontinued Medications Generic Name Dose Route Start Last Admin Trade Name Buffy PRN Reason Stop Dose Admin Sodium Chloride 500 mls @ 500 mls/hr 12/27/20 20:09 12/27/20 20:28 Normal Saline IV 12/27/20 21:08 500 mls/hr .BOLUS ONE Administration Sodium Chloride 500 mls @ 999 mls/hr 12/27/20 21:38 12/27/20 22:06 Normal Saline IV 12/27/20 22:08 999 mls/hr .BOLUS ONE Administration Metoclopramide HCl 5 mg 12/27/20 21:38 12/27/20 22:06 Metoclopramide 10 Mg/2 Ml Sdv IVPUSH 12/27/20 21:39 5 mg ONETIME ONE Administration Ondansetron HCl 4 mg 12/27/20 20:09 12/27/20 20:28 Ondansetron 4 Mg/2 Ml Sdv IVPUSH 12/27/20 20:10 4 mg ONETIME ONE Administration - Re-Assessments/Exams Free Text/Narrative Re-Assessment/Exam: 12/27/20 21:39 Nursing staff notifies me that the patient's 500 mm bolus is complete. Patient states that she is not feeling much better and did just have an emesis x1. Will give the patient's remaining 500 mL of normal saline as well as giving her 5 mg of Reglan IV. 12/27/20 23:01 Patient reports that she is feeling much better and her nausea has resolved. She will be discharged home. Departure - Departure Time of Disposition: 23:01 Disposition: Home, Self-Care 01 Condition: Good Clinical Impression: Hyperemesis gravidarum - Discharge Information Instructions: Hyperemesis Gravidarum Referrals: Isabel Baker MD [Primary Care Provider] - Forms: ED Department Discharge Additional Instructions: You were seen in the emergency department due to nausea and vomiting associated with . No lab studies were completed on this visit. You did receive 1 L of IV fluids as well as 1 dose of IV Zofran and a dose of IV Reglan. After this you stated that you felt much better. Go home and get plenty of rest and drink plenty of fluids. Follow-up with Dr. Baker at your next scheduled appointment. Should your condition worsen or change, do not hesitate returning to the emergency department. Sepsis Event Note (ED) - Focused Exam Vital Signs: Vital Signs Temp Pulse Resp BP Pulse Ox 12/27/20 20:04 72 18 106/77 97 12/27/20 19:48 97.3 F 79 16 106/67 96
[2020-12-27] MEDS ORDERED: Metoclopramide 10 MG/2 ML SDV IVPUSH ONE (21:38)
== END 2020-12-27 23:20 | disposition home or self-care (01) ==
LOC: JD.ED 19:20
DX: O21.2 Late vomiting of pregnancy (principal); Z3A.21 21 weeks gestation of pregnancy; Z91.048 Other nonmedicinal substance allergy status
CPT/HCPCS: 96374; 96375; 99283; J2405; J2765; J7030

== ENCOUNTER 2021-05-05 19:40 | Inpatient (IN) | payer OTHER ==
[2021-05-05] MEDS ORDERED: Nalbuphine 10 MG/1 ML Vial IVPUSH PRN (20:54)
[2021-05-05] MEDS ORDERED: Ondansetron 4 MG/2 ML SDV IVPUSH PRN (20:54)
[2021-05-05] MEDS ORDERED: Sodium Chloride 0.9% 10 ML Syringe FLUSH PRN (20:54)
[2021-05-05] MEDS ORDERED: Oxytocin/Lactated Ringers 10 UNIT/1,000 ML BAG IV SCH ×2 (21:00)
[2021-05-05] MEDS ORDERED: Sodium Chloride 0.9% 10 ML Syringe FLUSH SCH (21:00)
[2021-05-05] MEDS: Lactated Ringers 1,000 ML IV SCH (22:20)
[2021-05-05] MEDS ORDERED: Bupivacaine/fentaNYL/NS 100 ML Bag EPIDUR PRN (23:56)
[2021-05-05] MEDS ORDERED: fentaNYL 100 MCG/2 ML SDV EPIDUR PRN (23:56)
[2021-05-05] MEDS ORDERED: diphenhydrAMINE 50 MG/ML SDV IVPUSH PRN (23:56)
[2021-05-05] MEDS ORDERED: ePHEDrine 50 MG/ML SDV IVPUSH PRN (23:56)
[2021-05-06] MEDS ORDERED: Bupivacaine 0.25% 10 ML SDV ONE
[2021-05-06] MEDS: Lactated Ringers 1,000 ML IV SCH ×2 (00:57→02:45)
[2021-05-06] MEDS ORDERED: Docusate Sodium 100 MG Cap PO PRN (07:10)
[2021-05-06] MEDS ORDERED: Witch Hazel Medicated Pads 40/Jar TOP PRN (07:10)
[2021-05-06] MEDS ORDERED: Benzocaine/Menthol 20%-0.5% Spray 78 GM Cannister TOP PRN (07:10)
[2021-05-06] MEDS ORDERED: Enoxaparin 40 MG/0.4 ML Syringe SUBCUT SCH (07:10)
[2021-05-06] MEDS: Enoxaparin 40 MG/0.4 ML Syringe SUBCUT SCH ×2 (11:02→23:02)
[2021-05-06] MEDS ORDERED: Acetaminophen 325 MG Tab PO PRN (20:02)
[2021-05-07] MEDS: Ibuprofen 600 MG Tab PO PRN ×2 (11:16→17:26)
[2021-05-07] MEDS: Enoxaparin 40 MG/0.4 ML Syringe SUBCUT SCH ×2 (11:50→23:05)
[2021-05-08] MEDS: Ibuprofen 600 MG Tab PO PRN (03:42)
[2021-05-08] MEDS: Enoxaparin 40 MG/0.4 ML Syringe SUBCUT SCH (11:00)
== END 2021-05-08 11:30 | disposition home or self-care (01) | DRG 807 ==
LOC: JD.OBCHECK 19:40 → JD.OB 19:50 → JD.OBCHECK 20:54 → JD.OB 20:54 → OBSVTOIN 05-06 06:28 → JD.OB 05-06 06:29
PROVIDERS: ADMIT Obstetrics & Gynecology; ATTEND Obstetrics & Gynecology
PROC: 10E0XZZ Delivery of Products of Conception, External Approach (ICD-10-PCS; principal; 2021-05-06)
PROC: 0HQ9XZZ Repair Perineum Skin, External Approach (ICD-10-PCS; 2021-05-06)
PROC: 3E0R3BZ Introduction of Anesthetic Agent into Spinal Canal, Percutaneous Approach (ICD-10-PCS; 2021-05-06)
PROC: 00HU33Z Insertion of Infusion Device into Spinal Canal, Percutaneous Approach (ICD-10-PCS; 2021-05-06)
DX: O99.52 Diseases of the respiratory system complicating childbirth (principal); Z37.0 Single live birth; Z3A.39 39 weeks gestation of pregnancy; O99.344 Other mental disorders complicating childbirth; O70.0 First degree perineal laceration during delivery; Z20.822 Contact with and (suspected) exposure to COVID-19; F32.A Depression, unspecified; J45.909 Unspecified asthma, uncomplicated
CPT/HCPCS: 01967; 36415; 51702; 59025; 59409; 85025; 85027; 86592; A9270-GY; J1650; J2300; J2405; J2590; J3010; J3490; J7120; U0002

== ENCOUNTER 2022-03-27 04:18 | Emergency (ER) | payer OTHER, BC ==
[2022-03-27] MEDS ORDERED: Lactated Ringers 1,000 ML IV ONE (05:19)
== END 2022-03-27 07:00 | disposition home or self-care (01) ==
LOC: JD.ED 04:18
DX: R19.7 Diarrhea, unspecified (principal); Z91.048 Other nonmedicinal substance allergy status
CPT/HCPCS: 36415; 80053; 85025; 87045; 87046; 87493; 87899; 96360; 99284; J7120; 99283